=== PATIENT | female | born 1985 | race American Indian/Alaskan Native ===

== ENCOUNTER 2024-02-29 07:44 | Emergency (ER) | payer OTHER, SELFPAY ==
[2024-02-29 07:46] VITALS: BP 171/103; PULSE 100; RESP 18; TEMP 36.6; O2SAT 96; BMI 34.8
--- NOTE | 2024-02-29 08:04 | ED_ITS ---
HPI - Animal Bite General Chief Complaint: Animal Bite Stated Complaint: Bit by racoon Time Seen by Provider: 02/29/24 07:58 Source: patient Mode of arrival: ambulatory Limitations: no limitations History of Present Illness HPI narrative: Patient is a 38-year-old female who presents to the emergency department for evaluation. She reports 2 nights ago, she was bit and scratched to the bilateral forearms by a baby raccoon. Patient reports that the mother vitaly was killed by a coyote the other night, she was attempting to put the babies into a box for animal control to come and pick up operator when they had bit and scratched her arms. She was urged by her primary care provider to come to the emergency department to receive vaccination. Related Data Allergies Allergy/AdvReac Type Severity Reaction Status Date / Time Barbiturates Allergy Hypotension Verified 02/29/24 07:54 latex Allergy Hives Verified 02/29/24 07:54 morphine Allergy Hypotension Verified 02/29/24 07:54 Review of Systems Review of Systems: Yes all other systems are reviewed and are negative PMFSH Past Medical History Attestation statement: The following information was validated with the patient. Source: old records reviewed Social History Social History Do you have a plan to hurt others: No Plan Physical Exam ED Vital Signs: Vital Signs - 24 hr 02/29/24 07:46 Temperature 97.9 F Pulse Rate 100 Respiratory Rate 18 Blood Pressure 171/103 H Pulse Oximetry 96 Oxygen Delivery Method Room Air BMI result Body Mass Index 34.8 Appearance: Alert.?Oriented to person, place and time. No acute distress.?Normal affect. Eyes: Pupils equal, round and reactive to light.? ENT: Pharynx normal.?? Neck: Normal inspection.? Neck supple.?? CVS: Heart sounds normal. Normal heart rate and rhythm.? Pulses normal.?? Respiratory: No respiratory distress.? Lung sounds clear to auscultation bilaterally?? Skin: Skin warm and dry.? Normal skin color.? Extremities: No lower extremity edema.? Superficial abrasions of the bilateral forearms and over the radial aspect of the left wrist Neuro: Moves all extremities spontaneously. Sensation intact bilaterally. Ambulates with normal steady gait. Medical Decision Making Medical Decision Making MDM Narrative: Patient is a 38-year-old female who presents emergency department for evaluation after being bitten by a raccoon to the bilateral forearms 2 nights ago as per HPI. Overall appears well. Bites or without surrounding erythema warmth or active bleeding. She overall appears well, nontoxic, afebrile. 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 She is able to be calmed with redirection. Rabies immunoglobulin and vaccination series will be initiated in the emergency department in addition to updating Tdap. She verbalizes understanding for outpatient follow-up for the remainder of her va ccination series. Differential Diagnosis Differential Diagnoses: The differential diagnosis associated with the presentation includes (Rabies exposure, tetanus exposure, clinically does not have evidence of cellulitis, no active bleeding.) Prescription Management I considered prescription management with: Pain Medication (Acetaminophen/ibuprofen) Discharge Plan Discharge Clinical Impression: Animal bite Patient Disposition: Home, Self-Care Instructions: Rabies Vaccine (By injection), Rabies Immune Globulin (By injection), Rabies (ED) Additional Instructions: Rabies follow up with [place] [facility]: Upon discharge from the ED today, you will be contacted by the Infusion Center to schedule your follow up Rabies vaccines. You will need a total of 3 more injections. If for some reason you do not receive a call, please call the Infusion Center directly at [phone]. Follow up with your primary care provider after completion of the vaccine to have a titer drawn to ensure the vaccines effectiveness. Referrals: Sherine Cox NP [Primary Care Provider] - Print Language: Gabonese
[2024-02-29 09:23] VITALS: BP 136/92; PULSE 77; RESP 16; TEMP 37.1; O2SAT 97
[2024-02-29] MEDS: Rabies Immune Globulin/PF 900 UNIT/3 ML VIAL 1510 UNIT IM (09:28)
[2024-02-29] MEDS: Rabies Vaccine, Human Diploid (Imovax) 1 ML VIAL IM (09:28)
[2024-02-29] MEDS: Diphth,Pertus(ACell),Tet Adult 0.5 ML SYRINGE IM (09:31)
--- NOTE | 2024-02-29 10:18 | PC.NURSE ---
patient reports she was bit and scratched by a baby raccoon on 02/27/24 around 2300. patient states the animal was under her boat. patient medicated per DEC, feeling anxious but tolerated injections well. animal bite reporting form faxed to [facility]. f/u orders in. d/c instructions reviewed w/ patient, no questions at time of d/c
[2024-02-29 10:24] VITALS: BP 00/00; PULSE 72; RESP 16; TEMP -17.7; TEMP 0; O2SAT 97
== END 2024-02-29 10:24 | disposition home or self-care (01) ==
PROVIDERS: Emergency Provider Emergency Medicine; PCP Nurse Practitioner Family
DX: S51.832A Puncture wound without foreign body of left forearm, initial encounter (principal); S51.831A Puncture wound without foreign body of right forearm, initial encounter; W55.51XA Bitten by raccoon, initial encounter; Y93.9 Activity, unspecified; Y92.9 Unspecified place or not applicable; Y99.9 Unspecified external cause status; Z20.3 Contact with and (suspected) exposure to rabies; Z23 Encounter for immunization
CPT/HCPCS: 90375; 90471; 90472; 90675; 90715; 96372; 99282; 99284

== ENCOUNTER 2024-04-13 21:17 | Emergency (ER) | payer SELFPAY ==
--- NOTE | 2024-04-13 | ECG_ITS ---
Test Reason : CHEST PAIN Blood Pressure : / mmHG Vent. Rate : 104 BPM Atrial Rate : 104 BPM P-R Int : 136 ms QRS Dur : 094 ms QT Int : 342 ms P-R-T Axes : 062 016 035 degrees QTc Int : 449 ms Sinus tachycardia Otherwise normal ECG No previous ECGs available Referred By: Generic ED Physician Electronically Signed By:ZACH PARKER
[2024-04-13 21:22] VITALS: BP 135/86; PULSE 108; O2SAT 95
[2024-04-13 21:24] VITALS: BP 152/93; PULSE 107; RESP 12; TEMP 36.7; O2SAT 96; BMI 33.6
[2024-04-13 21:26] VITALS: BP 135/86; BP 152/93; PULSE 107; PULSE 108; RESP 12; TEMP 36.7; O2SAT 95; O2SAT 96; BMI 33.6
[2024-04-13 21:32] VITALS: RESP 18
--- NOTE | 2024-04-13 22:01 | ED_ITS ---
HPI - Chest Pain General Chief Complaint: Chest Pain Stated Complaint: cp Time Seen by Provider: 04/13/24 21:46 Source: patient Mode of arrival: EMS History of Present Illness ED Provider: Jannette Frias PA-C HPI narrative: 38-year-old female with history of anxiety presents with chest pain x3 days. Patient states she is having discomfort across the central chest, she describes it as ?as if someone kicked me in the chest?. Patient states her discomfort is exacerbated by ?stress?. When asked what this means, the patient begins to cry and explains she feels her recent rabies vaccines are causing her symptoms. Patient further reports that ?, I keep having episodes where I am shaking and I can not stop shaking?. Patient's last vaccine was administered on March 07, she never followed up for her last vaccine which should have been scheduled for March. Patient denies shortness of breath, cough cold symptoms, fever. Denies abdominal pain, nausea, vomiting, diarrhea. Related Data Allergies Allergy/AdvReac Type Severity Reaction Status Date / Time Barbiturates Allergy Hypotension Verified 04/13/24 21:32 latex Allergy Hives Verified 04/13/24 21:32 morphine Allergy Hypotension Verified 04/13/24 21:32 Penicillins Allergy Unknown Verified 04/13/24 21:32 hydromorphone AdvReac Hypotension Verified 04/13/24 21:32 Review of Systems 2 Review of Systems: Yes all other systems are reviewed and are negative Constitutional: Constitutional: Denies fever(s) Cardiovascular: Cardiovascular: Reports chest pain and Denies dyspnea Respiratory: Respiratory: Denies dyspnea Gastrointestinal: Gastrointestinal: Reports no additional gastrointestinal complaints Psychiatric: Psychiatric: Reports anxiety PMFSH Past Medical History Attestation statement: The following information was validated with the patient. Social History Social History Smoked in Last 30 Days: Yes Use of substances other than those prescribed or required for medical reasons: No Advance Directives: No Advance Directives Information Provided: No Do you have a plan to hurt others: No Plan Physical Exam 2 Vital Signs: Vital Signs: Last Vital Signs Temp 98.1 F 04/13/24 21:26 Pulse 107 H 04/13/24 21:26 Resp 18 04/13/24 21:32 BP 152/93 H 04/13/24 21:26 Pulse Ox 96 04/13/24 21:26 O2 Del Method Room Air 04/13/24 21:26 BMI result Body Mass Index 33.6 Const: Other: Alert well in appearance Orientation/consciousness: oriented to person, oriented to place and oriented to time Chest: Other: No deformity noted over chest wall, pain elicited with palpation on chest wall Resp: Other: Nonlabored respiration Cardio: Other: Normal peripheral perfusion Peripheral pulses: other (Radial pulses +2) Skin: Other: No rash Neuro: General: oriented to person, oriented to place and oriented to time Psych: Other: Hostile, belligerent, anxious, crying... Patient extremely emotionally labile, when she begins crying she is extremely apologetic for the way she is treated staff. Medical Decision Making Medical Decision Making MDM Narrative: 38-year-old female with history of anxiety, self report of aortic aneurysm presents with chest pain x3 days. Patient states she is having discomfort across the central chest, she describes it as ?as if someone kicked me in the chest?. Patient states her discomfort is exacerbated by ?stress?. When asked what this means, the patient begins to cry and explains she feels her recent rabies vaccines are causing her symptoms. Patient further reports that ?, I keep having episodes where I am shaking and I can not stop shaking?. Patient's last vaccine was administered on March 07, she never followed up for her last vaccine which should have been scheduled for March. Patient denies shortness of breath, cough cold symptoms, fever. Denies abdominal pain, nausea, vomiting, diarrhea. Problem: Anxiety, aortic aneurysm History: Per patient I have considered the following differential diagnoses: Dissection, ACS, panic attack, chest wall pain, PE Plan: ACS was considered, the patient does have some risk factors for coronary artery disease, screening labs, cardiac enzymes EKG obtained. To note the patient adamantly refuses a chest x-ray. I do believe her presentation is secondary to having a panic attack, her anxiety is poorly controlled. Patient states he used to see a therapist for years, and that she ?I have plenty of coping mechanisms of my to a box, I just can not use them?. She is perseverating over the fact that her recent rabies vaccines are causing her tremor and discomfort. I reviewed the list of adverse reactions with her, none of her complaints are part of this picture. I will be sending the patient with outpatient resources for counseling and therapy. She does have an element of chest wall pain, the pain is reproducible with palpation. However she has no mechanism of injury. Lastly of course I have considered dissection as she has a history of aortic aneurysm, I do not think she is dissecting. She has had symptoms for 3 days, she is neurovascularly intact, radial pulses are equal, and she has not overtly hypertensive. Again she declines a chest x-ray. Also thought about PE, she is tachycardic. However she has not hypoxic, the tachycardia is transient, she has no objective signs symptoms for DVT on exam, she also declined shortness of breath, and her pain is not pleuritic. Deferring a dimer as I do not feel it is clinically warranted. I have tried numerous times to address the fact that it would be nice to have a chest x-ray, however she adamantly refuses. She just wants to leave. I have independently reviewed the following tests: Labs: No leukocytosis, no anemia, no electrolyte abnormality, troponin negative, EKG: Have to be so hard sinus tachycardia, rate of 104, no ischemic changes no ectopy, QT 440 Differential Diagnosis Differential Diagnoses: The differential diagnosis associated with the presentation includes Dissection, ACS, panic attack, chest wall pain Lab Data 04/13/24 22:15 04/13/24 22:15 Labs: Lab Results 04/13/24 Range/Units 22:15 WBC 6.4 (4.8-10.8) X10*3/uL RBC 4.42 (4.20-5.50) X10*6/uL Hgb 15.1 (12.0-16.0) g/dl Hct 42.7 (37.0-47.0) % MCV 96.6 (80.0-98.0) fL MCH 34.2 H (27.0-33.0) pg MCHC 35.4 H (31.0-35.0) g/dl RDW 13.3 (11.0-16.0) % Plt Count 176 (160-400) X10*3/uL MPV 8.5 L (9.4-12.3) fL Immature Gran % (Auto) 0.3 (0.0-0.4) % Neut % (Auto) 45.0 (45-73) % Lymph % (Auto) 45.6 H (20-40) % Bowie % (Auto) 6.2 (2-11) % Eos % (Auto) 2.3 (0-4) % Baso % (Auto) 0.6 (0-2) % Lymph # (Auto) 2.9 (1.2-4.9) X10*3/uL Bowie # (Auto) 0.4 (0.1-1.2) X10*3/uL Eos # (Auto) 0.2 (0.0-0.4) X10*3/uL Baso # (Auto) 0.0 (0.0-0.2) X10*3/uL Abs Immat Gran (auto) 0.02 (0.00-0.03) X10*3/uL Absolute Neuts (auto) 2.9 (2.0-8.3) x10*3/uL Absolute Nucleated RBC 0.000 (0.0-0.012) X10*3/uL Nucleated RBC % (auto) 0.0 (0.0-0.2) /100WBC Sodium 142 (135-145) mmol/L Potassium 3.4 (3.3-5.1) mmol/L Chloride 104 (96-108) mmol/L Carbon Dioxide 24 (22-29) mmol/L Anion Gap 17 (12-20) BUN 6 L (9-16) mg/dL Creatinine 0.73 (0.5-1.4) mg/dL Estim Creat Clear Calc 90.7 Estimated GFR > 60 Random Glucose 104 (60-115) mg/dL Calcium 9.7 (8.4-10.2) mg/dL Total Bilirubin 0.4 (0.0-1.0) mg/dL AST 296 H (5-31) U/L ALT 42 H (0-31) U/L Alkaline Phosphatase 106 (39-117) U/L Troponin I High Sens < 2.7 (<3.5-17.0) ng/L Total Protein 8.7 H (6.5-8.0) g/dL Albumin 4.4 (3.5-5.0) g/dL Discharge Plan Discharge Clinical Impression: Anxiety about health Patient Disposition: Home, Self-Care Instructions: Panic Attack (ED) Additional Instructions: All of your screening labs including a cardiac enzymes were negative. There were no concerning changes on her EKG, you declined a chest x-ray. Your discomfort is not related to your heart. I do believe your anxiety is poorly controlled, you are being provided with a list of outpatient resources so that you can seek counseling. Follow up with your primary care provider as needed. Print Language: Estonian
[2024-04-13 22:19] LABS: MANUAL DIFF FLAG NO
[2024-04-13 22:22] LABS: Basophils Percent Auto 0.6 % (0-2); Eosinophils Absolute Auto 0.2 X10*3/uL (0.0-0.4); Eosinophils Percent Auto 2.3 % (0-4); Hematocrit 42.7 % (37.0-47.0); Hemoglobin 15.1 g/dl (12.0-16.0); Imm Gran Abs Auto 0.02 X10*3/uL (0.00-0.03); Imm Gran Pct Auto 0.3 % (0.0-0.4); Lymphocytes Absolute Auto 2.9 X10*3/uL (1.2-4.9); Lymphocytes Percent Auto 45.6 % (20-40); Mean Corpuscular HGB Conc 35.4 g/dl (31.0-35.0); Mean Corpuscular Hemoglobin 34.2 pg (27.0-33.0); Mean Corpuscular Volume 96.6 fL (80.0-98.0); Mean Platelet Volume 8.5 fL (9.4-12.3); Monocytes Absolute Auto 0.4 X10*3/uL (0.1-1.2); Monocytes Percent Auto 6.2 % (2-11); Neutrophils Absolute Auto 2.9 x10*3/uL (2.0-8.3); Platelet Count 176 X10*3/uL (160-400); Red Blood Count 4.42 X10*6/uL (4.20-5.50); Red Cell Distribution Width 13.3 % (11.0-16.0); White Blood Count 6.4 X10*3/uL (4.8-10.8)
[2024-04-13 22:43] LABS: Alanine Aminotransferase 42 U/L (0-31); Albumin Level 4.4 g/dL (3.5-5.0); Alkaline Phosphatase 106 U/L (39-117); Anion Gap 17 (12-20); Aspartate Amino Transferase 296 U/L (5-31); Bilirubin Total 0.4 mg/dL (0.0-1.0); Blood Urea Nitrogen 6 mg/dL (9-16); Calcium 9.7 mg/dL (8.4-10.2); Carbon Dioxide 24 mmol/L (22-29); Chloride 104 mmol/L (96-108); Creatinine Clr Calc Pharmacy 90.7; Estimated Glomerular Filt Rate > 60; Glucose Random 104 mg/dL (60-115); Potassium 3.4 mmol/L (3.3-5.1); Sodium 142 mmol/L (135-145); Total Protein 8.7 g/dL (6.5-8.0)
--- NOTE | 2024-04-13 22:46 | PC.NURSE ---
pt upset at nurses station asking for her cell phone. pt getting upset while on the phone stating no one has seen her. This rn witness pt getting upset, this rn talked with pt with palliative senior np at bedside and reviewed all the test, labs, vitals and xray that the palliative senior np is going thur at this time. results till pending.
--- NOTE | 2024-04-13 22:49 | PC.NURSE ---
Before patient even seen by provider, was asking to go home. Patient told she should wait until a provider sees her and her lab work to come back before leaving.
[2024-04-13 22:53] LABS: Troponin-I High Sensitivity < 2.7 ng/L (<3.5-17.0)
[2024-04-13 23:31] VITALS: BP 148/87; PULSE 8; RESP 18; TEMP 36.8
== END 2024-04-13 23:32 | disposition home or self-care (01) ==
PROVIDERS: Emergency Provider Emergency Medicine
DX: R07.89 Other chest pain (principal); F41.1 Generalized anxiety disorder; F43.0 Acute stress reaction; Z79.899 Other long term (current) drug therapy
CPT/HCPCS: 36415; 80053; 84484; 85025; 93005; 99283; 99285

== ENCOUNTER → 2024-04-13 21:24 | Outpatient (BNV) | payer SELFPAY | PROVIDERS: Emergency Provider Emergency Medicine; Visit Provider Internal Medicine | DX: R00.0 Tachycardia, unspecified (principal); R07.9 Chest pain, unspecified | CPT/HCPCS: 93010 ==

== ENCOUNTER 2025-09-25 11:24 | Inpatient (IN) | payer MEDICAID, SELFPAY ==
--- NOTE | ~2025-09-25 | XR_ITS ---
EXAMINATION: XR CHEST CLINICAL INFORMATION: Cough COMPARISON: None available. TECHNIQUE: AP portable view of the chest was obtained. FINDINGS: Projection is apical lordotic. The cardiac, hilar, and mediastinal contours are normal. The lungs are clear bilaterally. No pneumothorax or effusion. No focal osseous or soft tissue abnormality. XR/XR chest 1V IMPRESSION: Normal apical lordotic chest radiograph. Electronically signed by: Nadir Schwartz MD 09/28/2025 11:29 AM [facility]
--- NOTE | ~2025-09-25 | CT_ITS ---
EXAMINATION: CT ABDOMEN AND PELVIS WITH CONTRAST CLINICAL INFORMATION: abdominal pain, loose stools, abnormal electrolyte COMPARISON: None available. TECHNIQUE: Multidetector volumetric images were obtained from the superior aspect of the liver through the pubic symphysis following administration 85 mL of Omnipaque 350 intravenous contrast. Sagittal and coronal reformatted images were obtained on the technologist's workstation. Oral contrast: No This CT examination was performed using dose optimization techniques as appropriate, variously including the following: *Automated exposure control *Adjustment of mA and/or kV according to patient size (this includes techniques or standardized protocols for targeted exams where dose is matched to indication/reason for exam; i.e. extremities or head) *Use of iterative reconstruction technique FINDINGS: LUNG BASES: The visualized lung bases are unremarkable. LIVER, GALLBLADDER, AND BILIARY TREE: Fatty changes throughout the liver with geographic areas of fatty sparing. The gallbladder is unremarkable with no evidence of radiopaque gallstones, gallbladder wall thickening, or obvious pericholecystic inflammatory changes. PANCREAS: Unremarkable. SPLEEN: Unremarkable. ADRENAL GLANDS: There is a punctate calcifications in the left adrenal gland. The adrenal glands are otherwise unremarkable. KIDNEYS AND URETERS: There is a 2 mm stone in the upper pole left kidney and possibly 2 other smaller punctate stones in the mid to lower left kidney. There is no hydronephrosis. BLADDER: Unremarkable. GASTROINTESTINAL TRACT: The small and large bowel are unremarkable. There are surgical clips consistent with prior appendectomy. ABDOMINAL WALL: No significant hernia is appreciated. LYMPH NODES: Normal. VASCULAR: Unremarkable. PELVIC VISCERA: Uterus and ovaries are unremarkable. OSSEOUS STRUCTURES: L5-S1 demonstrates grade 2 anterolisthesis with vacuum phenomenon and moderate disc space narrowing and chronic bilateral pars interarticularis defects. CT/CT abdomen pelvis w IV con IMPRESSION: No abnormality to explain the patient's abdominal pain Hepatic steatosis with areas of geographic sparing. Nephrolithiasis, left kidney. There are likely three 1-2 mm stones. 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 Fleischner guidelines were followed. Electronically signed by: Ezio Centeno MD 09/25/2025 05:05 PM [facility]
[2025-09-25 12:03] VITALS: BP 129/81; PULSE 100; RESP 18; TEMP 36.8; O2SAT 100; BMI 33.8
--- NOTE | 2025-09-25 12:05 | ED_ITS ---
HPI - General Adult General Chief complaint: GI Bleed Stated complaint: Gastro Issues No Bowel Movement Time Seen by Provider: 09/25/25 13:37 Source: patient, family and old records reviewed Mode of arrival: ambulatory Limitations: no limitations History of Present Illness ED Provider: ALMITA DAVIDSON narrative: 40 yo with no real past medical history but she also does not go to the doctors. She admits to heavy alcohol use for years she states she was having about 10 nips of vodka a day. She has been trying to taper down and states she did drink this morning but it was only 3 sips. She states she has never had a withdrawal seizure but just she does shake at home. She states over the last several months starting in February she has had recurrent nausea, vomiting, blood in her urine I asked her about the blood in her stool and she states no but she did throw up what look like blood this morning. She states she takes no blood thinners no Motrin or NSAIDs. She states she has not passed gas or had a bowel movement in 1 week. She has prior abdominal surgeries including tubal ligation appendectomy. She was told to come here as she has been trying to do this as an outpatient and they noted her potassium was low so that is why they sent her to the ED. She is supposed to see GI as well who recommended she come here for emergent imaging. I asked her about weight loss and she says not that she is aware of. She has no fevers. MD complaint: Abdominal pain, nausea vomiting, constipation, episode of possible bloody Onset (ago): month(s) Location: abdomen Radiation: non-radiation Severity: severe Quality: aching Pain Consistency: constant Relieving factors: none Exacerbating factors: none Associated symptoms: loss of appetite, malaise, nausea/vomiting and other ( constipation) Treatments prior to arrival: none Related Data Home Medications ?Medication ?Instructions ?Recorded ?Confirmed albuterol sulfate 90 mcg/actuation 2 puff inhalation Q 4H PRN 09/25/25 09/25/25 aerosol inhaler Shortness Of Breath Or Wheez ing ondansetron 4 mg disintegrating 4 mg PO DAILY PRN Naus ea And 09/25/25 09/25/25 tablet Vomiting potassium chloride 20 mEq 20 meq PO BID 09/25/2509/25 tablet,extended release Allergies Allergy/AdvReac Type Severity Reaction Status Date / Time Barbiturates Allergy Hypotension Verified 09/25/25 12:06 latex Allergy Hives Verified 09/25/25 12:06 morphine Allergy Hypotension Verified 09/25/25 12:06 Penicillins Allergy Unknown Verified 09/25/25 12:06 hydromorphone AdvReac Hypotension Verified 09/25/25 12:06 Review of Systems 2 Review of Systems: Constitutional : No Weight loss, No Fever, No Chills ENT/Mouth : No sore throat, No Rhinorrhea Eyes: No Swelling, No Redness Cardiovascular : No Chest Pain, No SOB, NoEdema Respiratory : No Cough, No Sputum, No Wheezing Gastrointestinal : Positive Nausea, Positive Vomiting, no Diarrhea, positive abdominal Pain, No Hematochezia, No Melena, pos constipation Genitourinary : No Dysuria, No Urinary Frequency, No Hematuria, No Urgency Musculoskeletal : No joint pain, No Myalgias, No Joint Swelling Skin : No Skin Lesions, No rash Neuro : No Weakness, No Numbness, No Dizziness, No Headache All other systems reviewed and are negative. [facility] Past Medical History Attestation statement: The following information was validated with the patient. Source: old records reviewed Medical History Alcoholic Social History Social History Household Members: Children Housing: House Do you presently have visiting nurse or other home services: No Alcohol intake: current Alcohol intake frequency: 3 or more drinks per day Alcohol type: hard liquor Patient Tobacco Use Status: Current everyday Tobacco user Tobacco use type: Cigarette service: No Physical Exam ED Vital Signs: Vital Signs - 24 hr 09/25/25 12:03 09/25/25 14:18 09/25/25 16:51 Temperature 98.3 F 97.9 F 98.1 F Pulse Rate 100 109 H 95 Respiratory Rate 18 9 L 97 H Blood Pressure 129/81 142/94 H 125/81 Pulse Oximetry 100 97 97 Oxygen Delivery Method Room Air Room Air Room Air BMI result Body Mass Index 33.8 Appearance: Alert. Oriented X3. mild acute distress. she is older than stated age she has noted tremors on exam as well as tongue fasciculations. Eyes: Pupils equal, round and reactive to light. ENT: Pharynx dry mucous membranes. Patient almost seems to have a herrera face type presentation Neck: Normal inspection. Neck supple. CVS: tachycardic heart rate and rhythm. Pulses normal. Respiratory: No respiratory distress. Breath sounds normal. Abdomen: Soft with mild distention and tenderness to palpation along the upper abdominal area she has no rebound Skin: Skin warm and dry. pale skin color. Normal skin turgor. Extremities: No lower extremity edema. Neuro: Oriented X 3. No motor deficit. No sensory deficit. CN2-12 intact Course Course Course Narrative: Rapid medical examination performed in triage by Apoorva Srivastava PA-C: Patient is a 40 year old assigned female at presenting to the emergency department with abdominal pain and blood in her stools. Detailed physical exam and review of systems are deferred to the forest patrolman. Labs ordered. Patient placed back in the waiting room pending room availability and results. Reevaluation(s) Reevaluation #1: 4:20 PM 09/25/2025 (ALMITA JOHN): signed out to Dr. Hendrickson pending CT scan and anticipate admission. After phenobarb was administered I noted that she had a prior history of hypotension she currently is not hypotensive so she will need to be monitored Medications Administered Generic Name Dose Route Start Last Admin Trade Name Freq PRN Reason Stop Dose Admin Acetaminophen 650 mg 09/25/25 17:44 09/28/25 05:46 Acetaminophen 325 Mg Tablet PO 650 mg Q6H PRN Administration Pain, Mild 1-3,fever,headache Folic Acid 1 mg 09/26/25 09:00 09/28/25 09:10 Folic Acid 1 Mg Tablet PO 1 mg DAILY LIBBY Administration Guaifenesin 10 ml 09/27/25 01:19 09/28/25 09:09 Guaifenesin 200 Mg/10 Ml 10 Ml Liquid PO 10 ml Q4H PRN Administration Cough Magnesium Hydroxide 30 ml 09/25/25 17:44 09/27/25 10:47 Milk Of Magnesia 30 Ml Oral.Susp PO 30 ml DAILY PRN Administration Constipation Melatonin 6 mg 09/25/25 17:44 09/27/25 23:11 Melatonin 3 Mg Tablet PO 6 mg BEDTIME PRN Administration Insomnia Multivitamins/Vitamin C 1 tab 09/26/25 09:00 09/28/25 09:14 Multivitamin Tablet PO 1 tab DAILY LIBBY Administration Ondansetron HCl 4 mg 09/25/25 17:44 09/28/25 09:06 Ondansetron Hcl 4 Mg/2 Ml Vial IVPUSH 4 mg Q8H PRN Administration Nausea and Vomiting Pantoprazole Sodium 40 mg 09/26/25 06:30 09/28/25 05:36 Pantoprazole Sodium 40 Mg/10 Ml Vial IVPUSH 40 mg BID@0630,1630 LIBBY Administration Phenobarbital 15 mg 09/28/25 09:00 09/28/25 09:10 Phenobarbital 15 Mg Tablet PO 09/29/25 21:01 15 mg BID LIBBY Administration Sodium Chloride 3 ml 09/26/25 00:00 09/28/25 09:15 0.9 % Sodium Chloride Flush 3 Ml Syringe IVFLUSH 3 ml QSHIFT LIBBY Administration Thiamine HCl 100 mg 09/26/25 09:00 09/28/25 09:10 Thiamine Hcl 100 Mg Tablet PO 100 mg DAILY LIBBY Administration Discontinued Medications Generic Name Dose Route Start Last Admin Trade Name Freq PRN Reason Stop Dose Admin Bisacodyl 10 mg 09/27/25 13:00 09/27/25 12:28 Bisacodyl 5 Mg Tablet. PO 09/27/25 13:01 10 mg ONCE ONE Administration Potassium Chloride 10 meq in 100 mls @ 100 mls/hr 09/25/25 14:00 09/26/25 00:43 Potassium Chloride/H20 IV 09/25/25 17:59 Infused Q1H LIBBY Infusion Lactated Ringer's 1,000 mls @ 80 mls/hr 09/25/25 13:45 09/27/25 20:19 Lr IVCONT Infused .[id number] LIBBY Infusion Magnesium Sulfate 2 gm in 50 mls @ 25 mls/hr 09/25/25 14:01 09/25/25 17:00 Magnesium Sulfate/H2o IV 09/25/25 16:00 Infused ONCE ONE Infusion Thiamine HCl 200 mg/ Sodium 102 mls @ 204 mls/hr 09/25/25 14:01 09/25/25 16:00 Chloride IV 09/25/25 14:30 Infused ONCE ONE Infusion Lactated Ringer's 1,000 mls @ 999 mls/hr 09/25/25 14:13 09/25/25 17:20 Lr IV 09/25/25 15:13 Infused .Q1H1M ONE Infusion Lactated Ringer's 500 mls @ 500 mls/hr 09/27/25 01:26 09/27/25 08:23 Lr IVCONT 09/27/25 02:25 Infused .Q1H ONE Infusion Iohexol 100 ml 09/25/25 16:41 09/25/25 16:41 Iohexol 350 Mg/Ml 100 Ml Infus..Btl IV 09/25/25 16:42 85 ml ONCE ONE Administration Pantoprazole Sodium 40 mg 09/25/25 14:02 09/25/25 14:41 Pantoprazole Sodium 40 Mg/10 Ml Vial IVPUSH 09/25/25 14:03 40 mg ONCE ONE Administration Phenobarbital 30 mg 09/26/25 09:00 09/27/25 19:57 Phenobarbital 30 Mg Tablet PO 09/27/25 21:01 30 mg BID LIBBY Administration Phenobarbital Sodium 170 mg 09/25/25 14:15 09/25/25 15:05 Phenobarbital Sodium 130 Mg/Ml Im Once IM 09/25/25 14:16 170 mg ONCE ONE Administration Phenobarbital Sodium 127 mg 09/25/25 18:00 09/25/25 21:42 Phenobarbital Sodium 130 Mg/Ml Vial Im Q3hx2 IM 09/25/25 21:01 127 mg Q3H LIBBY Administration Potassium Chloride 40 meq 09/25/25 14:34 09/25/25 15:10 Potassium Chloride Packet 20 Meq Packet PO 09/25/25 14:35 40 meq ONCE ONE Administration Potassium Chloride 40 meq 09/25/25 19:19 09/25/25 21:37 Potassium Chloride Packet 20 Meq Packet PO 09/25/25 19:20 40 meq ONCE STA Administration Thiamine HCl 100 mg 09/25/25 18:00 09/26/25 09:22 Thiamine Hcl 100 Mg Tablet PO Not Given DAILY LIBBY Medical Decision Making Medical Decision Making MDM Narrative: 40-year-old female with past medical history of alcoholism she has never had an alcohol withdrawal seizure on arrival today she has several months of abdominal pain, nausea, vomiting now for the past week has not had a bowel movement or passed gas. She has had prior abdominal surgeries. She also reports she thinks she vomited some blood this morning she has no risk factors such as NSAID or blood thinner use. She has not been to the doctors before so it is very hard to say if she has true medical history. She was referred here for emergent CT scan given her symptoms as well as repletion of her electrolytes. On arrival she is clearly and alcohol withdrawal. At this time given her QTC of 502, hypokalemia, alcohol use and signs of active withdrawal I am going to start her on IV potassium, IV thiamine, IV magnesium, IV fluids, I am phenobarb. She will need CT scan as well to look for any issues such as pancreatitis, obstruction, constipation. I anticipate she will need to be admitted given her presentation and concern for alcohol withdrawal. Patient's case discussed with hospitalist team. Will admit for further detox evaluation. In stable condition. Differential Diagnosis Differential Diagnoses: The differential diagnosis associated with the presentation includes Pancreatitis, electrolyte abnormality, gastritis, dehydration, alcohol withdrawal Admission/Observation Consideration of admission/observation: Escalation of care including admission/observation considered anticipate admission for alcohol withdrawal as well as electrolyte abnormality Lab Data MDM Lab Attestation statement: I reviewed the patient's lab results. 09/28/25 06:27 09/28/25 06:27 Labs: Lab Results 09/25/25 09/25/25 Range/Units 12:15 15:20 WBC 11.7 H (4.8-10.8) X10*3/uL RBC 3.62 L (4.20-5.50) X10*6/uL Hgb 12.7 (12.0-16.0) g/dl Hct 38.6 (37.0-47.0) % MCV 106.6 H (80.0-98.0) fL MCH 35.1 H (27.0-33.0) pg MCHC 32.9 (31.0-35.0) g/dl RDW 14.9 (11.0-16.0) % Plt Count 217 (160-400) X10*3/uL MPV 9.2 L (9.4-12.3) fL Immature Gran % (Auto) 0.3 (0.0-0.4) % Neut % (Auto) 72.6 (45-73) % Lymph % (Auto) 21.7 (20-40) % [place] % (Auto) 5.0 (2-11) % Eos % (Auto) 0.1 (0-4) % Baso % (Auto) 0.3 (0-2) % Lymph # (Auto) 2.5 (1.2-4.9) X10*3/uL [place] # (Auto) 0.6 (0.1-1.2) X10*3/uL Eos # (Auto) 0.0 (0.0-0.4) X10*3/uL Baso # (Auto) 0.0 (0.0-0.2) X10*3/uL Abs Immat Gran (auto) 0.04 H (0.00-0.03) X10*3/uL Absolute Neuts (auto) 8.5 H (2.0-8.3) x10*3/uL Absolute Nucleated RBC 0.000 (0.0-0.012) X10*3/uL Nucleated RBC % (auto) 0.0 (0.0-0.2) /100WBC Sodium 135 (135-145) mmol/L Potassium 2.4 L* D (3.3-5.1) mmol/L Chloride 89 L (96-108) mmol/L Carbon Dioxide 26 (22-29) mmol/L Anion Gap 22 H (12-20) BUN 4 L (9-16) mg/dL Creatinine 0.61 (0.5-1.4) mg/dL Estim Creat Clear Calc 102.1 Estimated GFR > 60 Random Glucose 101 (60-115) mg/dL Calcium 9.6 (8.4-10.2) mg/dL Magnesium 1.9 (1.6-2.6) mg/dL Total Bilirubin 1.3 H (0.0-1.0) mg/dL AST 159 H (5-31) U/L ALT 32 H (0-31) U/L Alkaline Phosphatase 136 H (39-117) U/L Total Protein 8.5 H (6.5-8.0) g/dL Albumin 4.3 (3.5-5.0) g/dL Lipase 42 (8-78) U/L Urine Color Yellow Urine Appearance Clear Urine pH 7.0 (5.0-9.0) Ur Specific [place] <= 1.005 (1.005-1.025) Urine Protein Negative (Neg-Trace) mg/dL Urine Glucose (UA) Negative (Negative) mg/dL Urine Ketones Negative (Negative) mg/dL Urine Blood Negative (Negative) Urine Nitrite Negative (Negative) Ur Leukocyte Esterase Trace H (Negative) Urine RBC 0-2 (0-2) /HPF Urine WBC 0-5 (0-5) /HPF Ur Squamous Epith Cells 3-5 (0-2) /HPF Urine Bacteria Trace (None Seen) Hyaline Casts 0-2 (0-2) /LPF Urine Test NEGATIVE (NEGATIVE) Ethyl Alcohol 117 mg/dL Independent Interpretation I performed an independent interpretation of an: EKG and CT Scan Interpretation: Rate: 105 Rhythm: sinus tach [place]: normal Normal P waves. Normal [place]. Normal QRS complex. ST T wave : no ST-elevation but she has diffuse nonspecific STT wave changes in the inferior and lateral leads qTC: 502 prior studies: suspect that you changes are due to her electrolyte derangement The study has been interpreted contemporaneously by me. . Radiology Impression Discussion of test interpretation with radiology: I have reviewed the radiologist's reading. Discharge Plan Discharge Clinical Impression: Hypokalemia Gastritis Qualifiers: Gastritis type: alcoholic Chronicity: acute Gastritis bleeding: without bleeding Qualified Code(s): K29.20 - Alcoholic gastritis without bleeding Alcohol withdrawal Qualifiers: Complication of substance-induced condition: with unspecified complication Q ualified Code(s): F10.939 - Alcohol use, unspecified with withdrawal, unspecified Patient Disposition: Admitted As Inpatient Interventions: Admission Worksheet (ED) Last Done: 09/26/25 09:32 Discharge Date/Time: 09/26/25 10:08
[2025-09-25 12:20] LABS: MANUAL DIFF FLAG NO
[2025-09-25 12:27] LABS: Hematocrit 38.6 % (37.0-47.0); Hemoglobin 12.7 g/dl (12.0-16.0); Imm Gran Abs Auto 0.04 X10*3/uL (0.00-0.03); Imm Gran Pct Auto 0.3 % (0.0-0.4); Lymphocytes Absolute Auto 2.5 X10*3/uL (1.2-4.9); Mean Corpuscular HGB Conc 32.9 g/dl (31.0-35.0); Mean Corpuscular Hemoglobin 35.1 pg (27.0-33.0); Mean Corpuscular Volume 106.6 fL (80.0-98.0); NRBC Abs Auto 0.000 X10*3/uL (0.0-0.012); NRBC Pct Auto 0.0 /100WBC (0.0-0.2); Platelet Count 217 X10*3/uL (160-400); Red Blood Count 3.62 X10*6/uL (4.20-5.50); White Blood Count 11.7 X10*3/uL (4.8-10.8)
[2025-09-25 12:40] LABS: Alanine Aminotransferase 32 U/L (0-31); Albumin Level 4.3 g/dL (3.5-5.0); Alkaline Phosphatase 136 U/L (39-117); Anion Gap 22 (12-20); Aspartate Amino Transferase 159 U/L (5-31); Blood Urea Nitrogen 4 mg/dL (9-16); Calcium 9.6 mg/dL (8.4-10.2); Carbon Dioxide 26 mmol/L (22-29); Chloride 89 mmol/L (96-108); Creatinine Clr Calc Pharmacy 102.1; Estimated Glomerular Filt Rate > 60; Magnesium 1.9 mg/dL (1.6-2.6); Potassium 2.4 mmol/L (3.3-5.1); Sodium 135 mmol/L (135-145); Total Protein 8.5 g/dL (6.5-8.0)
--- NOTE | 2025-09-25 13:20 | ECG_ITS ---
Test Reason : qrs Blood Pressure : */* mmHG Vent. Rate : 105 BPM Atrial Rate : 105 BPM P-R Int : 120 ms QRS Dur : 84 ms QT Int : 380 ms P-R-T Axes : 71 16 12 degrees QTcB Int : 502 ms Sinus tachycardia Possible Left atrial enlargement T wave abnormality, consider inferior ischemia Abnormal ECG When compared with ECG of 13-Apr-2024 21:24, T wave inversion now evident in Inferior leads Nonspecific T wave abnormality now evident in Lateral leads QT has lengthened Referred By: Apoorva Srivastava Electronically Signed By: RADHA CARROLL MD
[2025-09-25 14:18] VITALS: BP 142/94; PULSE 109; RESP 9; TEMP 36.6; O2SAT 97
[2025-09-25 14:20] LABS: Lipase 42 U/L (8-78)
[2025-09-25] MEDS: Lactated Ringers 1,000 ML 999 ML IV (14:24)
[2025-09-25] MEDS: Potassium Chloride/H20 10 MEQ/100 ML PIGGYBACK 100 MEQ IV ×4 (14:29→21:40)
[2025-09-25] MEDS: Thiamine HCL 200 MG in 0.9 % Sodium Chloride 100 ML 204 MG IV (14:41)
[2025-09-25] MEDS: Magnesium Sulfate/H2O 2 GM/50 ML PIGGYBACK IV (14:41)
[2025-09-25] MEDS: PHENobarbitaL sodium 130 MG/ML IM ONCE 170 MG IM (15:05)
[2025-09-25] MEDS: Potassium Chloride Packet 20 MEQ PACKET 40 MEQ PO ×2 (15:10→21:37)
[2025-09-25 15:43] LABS: Appearance Urine Clear; Glucose Urine UA Negative (Negative); PH 7.0 (5.0-9.0); Specific Gravity - Urine <= 1.005 (1.005-1.025); UMIC TRIGGER UACC YES
[2025-09-25 16:27] LABS: UPreg QC Valid YES
[2025-09-25] MEDS: iohexoL 350 MG/ML 100 ML INFUS..BTL IV (16:41)
[2025-09-25 16:51] VITALS: BP 125/81; PULSE 95; RESP 97; TEMP 36.7; O2SAT 97
--- NOTE | 2025-09-25 18:30 | P.HPHOSP_ITS ---
History of Present Illness Date of Service: 09/25/25 Chief Complaint: n/v 40yo M with no diagnosed chronic medical problems but who drinks approximately 10 nips of vodka has had persistent nausea, vomiting, and epigastric pain since February. She has been unable to keep anything solid down for the past 1 week and thinks she threw up a little bit of blood this AM. Doesn't take aspirin or ibuprofen. No BM x 1 wk. She was noted to be intoxicated with BAL 117 and severely hypokalemic with K 2.4. She endorses generalized muscle weakness. She was given IV pantoprazole, 40 mEq of IV KCl, and 40 mEq of PO KCl. She was started on phenobarbital taper. No history of EtOH withdrawal seizures. Review of Systems 2 Review of Systems: Yes all other systems are reviewed and are negative [facility] Medical History Alcoholic Social History Alcohol intake: current Alcohol intake frequency: 3 or more drinks per day Alcohol type: hard liquor Patient Tobacco Use Status: Tobacco use Unknown Smoked in Last 30 Days: Yes Advance Directives: No Advance Directives Information Provided: Yes Patient : No Meds Allergies Allergy/AdvReac Type Severity Reaction Status Date / Time Barbiturates Allergy Hypotension Verified 09/25/25 12:06 latex Allergy Hives Verified 09/25/25 12:06 morphine Allergy Hypotension Verified 09/25/25 12:06 Penicillins Allergy Unknown Verified 09/25/25 12:06 hydromorphone AdvReac Hypotension Verified 09/25/25 12:06 Active Medications: Current Medications Acetaminophen (Acetaminophen 325 Mg Tablet) 650 mg PO Q6H PRN PRN Reason: Pain, Mild 1-3,fever,headache Calcium Carbonate (Calcium Carbonate 750 Mg Tab.Chew) 750 mg PO Q4H PRN PRN Reason: Heartburn Enoxaparin Sodium (Enoxaparin Sodium 40 Mg/0.4 Ml Syringe) 40 mg SUBCUT Q24H LIBBY Folic Acid (Folic Acid 1 Mg Tablet) 1 mg PO DAILY LIBBY Lactated Ringer's (Lr) 1,000 mls @ 80 mls/hr IVCONT .[id number] LIBBY Magnesium Hydroxide (Milk Of Magnesia 30 Ml Oral.Susp) 30 ml PO DAILY PRN PRN Reason: Constipation Melatonin (Melatonin 3 Mg Tablet) 6 mg PO BEDTIME PRN PRN Reason: Insomnia Multivitamins/Vitamin C (Multivitamin Tablet) 1 tab PO DAILY [facility] Ondansetron HCl (Ondansetron Hcl 4 Mg/2 Ml Vial) 4 mg IVPUSH Q8H PRN PRN Reason: Nausea and Vomiting Pantoprazole Sodium (Pantoprazole Sodium 40 Mg/10 Ml Vial) 40 mg IVPUSH BID@0630,1630 [facility] Pharmacy Consult (Consult Rx Etoh Phenob Im/Po) 1 each MISCELLANE ONCE PRN; Protocol PRN Reason: Consult order Phenobarbital (Phenobarbital 30 Mg Tablet) 30 mg PO BID [facility] Stop: 09/27/25 21:01 Phenobarbital (Phenobarbital 15 Mg Tablet) 15 mg PO BID [facility] Stop: 09/29/25 21:01 Phenobarbital (Phenobarbital 15 Mg Tablet) 15 mg PO DAILY [facility] Stop: 10/01/25 09:01 Phenobarbital Sodium (Phenobarbital Sodium 130 Mg/Ml Vial Im Q3hx2) 127 mg IM Q3H [facility] Stop: 09/25/25 21:01 Sodium Chloride (0.9 % Sodium Chloride Flush 3 Ml Syringe) 3 ml IVFLUSH QSHIFT [facility] Thiamine HCl (Thiamine Hcl 100 Mg Tablet) 100 mg PO DAILY [facility] Home Medications ?Medication ?Instructions ?Recorded ?Confirmed ?Last Taken ?Type folic acid 1 mg tablet 1 mg PO DAILY 09/25/25 Unkn own History naltrexone 50 mg tablet 50 mg PO DAILY 09/25/25 Unk nown History ondansetron 4 mg disintegrating 4 mg PO DAILY PRN Naus ea And 09/25/25 Unknown History tablet Vomiting potassium chloride 20 mEq 20 meq PO BID 09/25/25 Unkn own History tablet,extended release Physical Exam 2 Vital Signs and Narrative: Vital Signs: Last Vital Signs Temp 98.1 F 09/25/25 16:51 Pulse 95 09/25/25 16:51 Resp 97 H 09/25/25 16:51 BP 125/81 09/25/25 16:51 Pulse Ox 97 09/25/25 16:51 O2 Del Method Room Air 09/25/25 16:51 BMI result Body Mass Index 33.8 Gen: in no acute distress HEENT: sclera anicteric, moist mucus membranes Neck: supple Lungs: clear to auscultation bilaterally Heart: regular, tachycardic, no murmurs Abd: soft, epigastric tenderness without rebound, non-distended Ext: no edema Skin: warm/well-perfused Neuro: alert and oriented x3, no focal findings Psych: appropriate affect Results Labs 09/25/25 12:15 09/25/25 12:15 Labs: Laboratory Results - last 24 hr 09/25/25 09/25/25 12:15 15:20 MCV 106.6 H MCH 35.1 H MCHC 32.9 RDW 14.9 Plt Count 217 MPV 9.2 L Immature Gran % (Auto) 0.3 Neut % (Auto) 72.6 Lymph % (Auto) 21.7 [place] % (Auto) 5.0 Eos % (Auto) 0.1 Baso % (Auto) 0.3 Lymph # (Auto) 2.5 [place] # (Auto) 0.6 Eos # (Auto) 0.0 Baso # (Auto) 0.0 Abs Immat Gran (auto) 0.04 H Absolute Neuts (auto) 8.5 H Absolute Nucleated RBC 0.000 Nucleated RBC % (auto) 0.0 Anion Gap 22 H Estim Creat Clear Calc 102.1 Estimated GFR > 60 Random Glucose 101 Calcium 9.6 Magnesium 1.9 Total Bilirubin 1.3 H AST 159 H ALT 32 H Alkaline Phosphatase 136 H Total Protein 8.5 H Albumin 4.3 Lipase 42 Urine Color Yellow Urine Appearance Clear Urine pH 7.0 Ur Specific [place] <= 1.005 Urine Protein Negative Urine Glucose (UA) Negative Urine Ketones Negative Urine Blood Negative Urine Nitrite Negative Ur Leukocyte Esterase Trace H Urine RBC 0-2 Urine WBC 0-5 Ur Squamous Epith Cells 3-5 Urine Bacteria Trace Hyaline Casts 0-2 Urine Test NEGATIVE Ethyl Alcohol 117 Imaging Radiologist's Impressions: Impressions Abdomen/Pelvis CT 09/25/25 16:41 IMPRESSION: No abnormality to explain the patient's abdominal pain Hepatic steatosis with areas of geographic sparing. Nephrolithiasis, left kidney. There are likely three 1-2 mm stones. 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 Fleischner guidelines were followed. Electronically signed by: Ezio Centeno MD 09/25/2025 05:05 PM [facility] [place] Assessment and Plan (1) Alcohol withdrawal: Qualifiers: Complication of substance-induced condition: with unspecified complication Qualified Code(s): F10.939 - Alcohol use, unspecified with withdrawal, unspecified Status: Acute Plan 40yo with AUD presenting with over 6 months of nausea, vomiting, and abdominal pain; inability to keep down anything solid over the last 1 wk; muscle weakness; and possible hematemesis; found to have severe hypoK severe hypoK - admit to telemetry, recheck K, replete IV/PO as needed, continue to check Mg AUD with impending withdrawal - phenobarbital taper, thiamine, folate, multivitamins, Addiction Medicine consult EtOH hepatitis - recheck LFTs and check INR in AM; does not appear severe enough to require steroids hematemesis - suspect Milagros-Hughes tear vs EtOH gastritis; will give IV PPI and recheck H+H VTE ppx: SCDs, no heparin given possible hematemesis dispo: TBD code: full I anticipate that the patient will stay at least 2 midnights as an inpatient in the hospital due to the above reasons. It is neither reasonable nor safe to care for them in a less acute setting. Quality Stroke Does the patient have a stroke diagnosis?: No VTE Prior VTE?: No VTE Risk Level:: Medical - moderate - high VTE Device Contraindication: N/A - Device Ordered VTE Drug Contraindication: N/A - Med Ordered
[2025-09-25] MEDS: PHENobarbitaL sodium 130 MG/ML VIAL IM Q3Hx2 127 MG IM ×2 (18:36→21:42)
[2025-09-25] MEDS: Lactated Ringers 1,000 ML 80 ML IVCONT (18:43)
--- NOTE | 2025-09-25 19:16 | PHA.MEDREC ---
Pharmacy Consult ? Medication Reconciliation Pharmacy has completed the medication reconciliation. Spoke with pt to confirm medications.
[2025-09-25 19:17] LABS: Potassium 3.4 mmol/L (3.3-5.1)
[2025-09-25 19:49] VITALS: BP 106/75; PULSE 97; RESP 12; TEMP 37.1; O2SAT 97
--- NOTE | 2025-09-25 21:17 | HO.NURTONUR ---
Addendum entered by Coco Linares RN 09/26/25 09:29: pt labs this morning WBC normal, H&H drop from 12.7-10.2, 38.6-31.3. K has been replaced and has noramlized. Pt still having nausea, retching, and white foamy spit. Pt has been getting zofran with little relief. CIWA 11 at 0930 09/26 Dr. Medina aware of symptoms, awaiting bedside eval this AM. she has been ambulating to the bathroom with no concerns. Tolerating ice chips and cranberry juice at this time. Pt interested in information on NA meetings, as she has had periods of being sober and is wanting to get herself back into a good spot. Has been decreasing nips down to 3-4 a day for the last few days. Original Note: Pt here w/ mult c/o's of blood in stool x mos assoc w/ n&V. Pt admits to drinking 10 nips of vodka q/day. CT negative, pt currently being admitted and tx'd for etoh withdrawal and hypokalemia.
[2025-09-26 04:08] LABS: Hematocrit 31.3 % (37.0-47.0); Hemoglobin 10.2 g/dl (12.0-16.0); Mean Corpuscular HGB Conc 32.6 g/dl (31.0-35.0); Mean Corpuscular Hemoglobin 34.7 pg (27.0-33.0); Mean Corpuscular Volume 106.5 fL (80.0-98.0); NRBC Abs Auto 0.000 X10*3/uL (0.0-0.012); NRBC Pct Auto 0.0 /100WBC (0.0-0.2); Platelet Count 144 X10*3/uL (160-400); Red Blood Count 2.94 X10*6/uL (4.20-5.50); White Blood Count 7.7 X10*3/uL (4.8-10.8)
[2025-09-26 04:15] LABS: INTERNATIONAL NORM RATIO 1.2 (0.9-1.1); Prothrombin Time 14.2 SEC (11.2-13.5)
[2025-09-26 04:26] LABS: Alanine Aminotransferase 20 U/L (0-31); Albumin Level 3.2 g/dL (3.5-5.0); Alkaline Phosphatase 104 U/L (39-117); Anion Gap 13 (12-20); Aspartate Amino Transferase 111 U/L (5-31); Blood Urea Nitrogen 5 mg/dL (9-16); Calcium 8.3 mg/dL (8.4-10.2); Carbon Dioxide 28 mmol/L (22-29); Chloride 98 mmol/L (96-108); Creatinine Clr Calc Pharmacy 107.4; Estimated Glomerular Filt Rate > 60; Magnesium 2.2 mg/dL (1.6-2.6); Potassium 3.5 mmol/L (3.3-5.1); Sodium 135 mmol/L (135-145); Total Protein 6.3 g/dL (6.5-8.0)
[2025-09-26 06:35] VITALS: BP 91/58; PULSE 70; RESP 18; TEMP 37.1; O2SAT 94
[2025-09-26] MEDS: Lactated Ringers 1,000 ML 80 ML IVCONT ×2 (09:14→20:32)
[2025-09-26] MEDS: 0.9 % Sodium Chloride Flush 3 ML SYRINGE IVFLUSH ×2 (09:14→16:04)
--- NOTE | 2025-09-26 09:36 | PC.NURSE ---
Resumed care of pt this morning at 0700, at that time she was resting comfortably. Pt has been up and ambulated to the bathroom, this RN discussed morning medication with pt, at this time she is still having a lot of nausea, pt requesting to wait on morning medications, education given on the importance of her Phenobarb and to attempt to take it as soon as she can as it can also help with the nausea, Zofran not due at this time, pt tolerating ice chips and cranberry juice well, CIWA 11 d/t nausea/RYAN/slight tremors, MD aware. IVF running per order. Awaiting transport to bed assignment at this time.
[2025-09-26 10:16] VITALS: BP 117/66; PULSE 93; RESP 18; TEMP 37.1; O2SAT 97
[2025-09-26 10:21] VITALS: BMI 36.4
[2025-09-26 11:48] VITALS: BP 123/62; PULSE 82; RESP 18; TEMP 36.8; O2SAT 96
--- NOTE | 2025-09-26 12:51 | MHC.CM.PN ---
Pt. lives with her children, she does not use home health services, or DME. PCP is Garima Hickman MD at [facility]. Pt. is able to arrange a ride home at [place], DCP: home, self care. CM to follow for DC needs.
--- NOTE | 2025-09-26 15:44 | P.PNIM_ITS ---
Subjective Subjective Date of Service: 09/26/25 Interval History: No acute issues overnight. No seizures noted Review of Systems Denies chest pain Denies shortness of breath Denies nausea vomiting diarrhea Denies fever chills Physical Exam 2 Vital Signs: Vital Signs: Last Vital Signs Temp 98.2 F 09/26/25 11:48 Pulse 82 09/26/25 11:48 Resp 18 09/26/25 11:48 BP 123/62 09/26/25 11:48 Pulse Ox 96 09/26/25 11:48 O2 Del Method Room Air 09/26/25 11:48 BMI result Body Mass Index 36.4 Const: Other: Awake alert oriented x3 in no acute distress Resp: Other: Clear to auscultation bilaterally no rales rhonchi or wheezes Cardio: Other: No S4; positive S1-S2; no S3 murmurs rubs or gallops GI: Other: Soft nontender nondistended normoactive bowel sounds Extrem: Other: No edema bilaterally Objective Data Active Medications Acetaminophen (Acetaminophen 325 Mg Tablet) 650 mg PO Q6H PRN PRN Reason: Pain, Mild 1-3,fever,headache Calcium Carbonate (Calcium Carbonate 750 Mg Tab.Chew) 750 mg PO Q4H PRN PRN Reason: Heartburn Folic Acid (Folic Acid 1 Mg Tablet) 1 mg PO DAILY [facility] Last Admin: 09/26/25 11:31 Dose: 1 mg Documented By: ADILIA Lactated Ringer's (Lr) 1,000 mls @ 80 mls/hr IVCONT .[id number] [facility] Last Admin: 09/26/25 13:56 Dose: Not Given Documented By: ADILIA Non-Admin Reason: IV Running Magnesium Hydroxide (Milk Of Magnesia 30 Ml Oral.Susp) 30 ml PO DAILY PRN PRN Reason: Constipation Melatonin (Melatonin 3 Mg Tablet) 6 mg PO BEDTIME PRN PRN Reason: Insomnia Multivitamins/Vitamin C (Multivitamin Tablet) 1 tab PO DAILY [facility] Last Admin: 09/26/25 11:31 Dose: 1 tab Documented By: ADILIA Ondansetron HCl (Ondansetron Hcl 4 Mg/2 Ml Vial) 4 mg IVPUSH Q8H PRN PRN Reason: Nausea and Vomiting Last Admin: 09/26/25 10:55 Dose: 4 mg Documented By: ADILIA Pantoprazole Sodium (Pantoprazole Sodium 40 Mg/10 Ml Vial) 40 mg IVPUSH BID@0630,8220 [facility] Last Admin: 09/26/25 09:14 Dose: 40 mg Documented By: SAM Pharmacy Consult (Consult Rx Etoh Phenob Im/Po) 1 each MISCELLANE ONCE PRN; Protocol PRN Reason: Consult order Phenobarbital (Phenobarbital 30 Mg Tablet) 30 mg PO BID [facility] Stop: 09/27/25 21:01 Last Admin: 09/26/25 11:31 Dose: 30 mg Documented By: ADILIA Phenobarbital (Phenobarbital 15 Mg Tablet) 15 mg PO BID [facility] Stop: 09/29/25 21:01 Phenobarbital (Phenobarbital 15 Mg Tablet) 15 mg PO DAILY [facility] Stop: 10/01/25 09:01 Sodium Chloride (0.9 % Sodium Chloride Flush 3 Ml Syringe) 3 ml IVFLUSH QSHIFT [facility] Last Admin: 09/26/25 09:14 Dose: 3 ml Documented By: SAM Thiamine HCl (Thiamine Hcl 100 Mg Tablet) 100 mg PO DAILY [facility] Last Admin: 09/26/25 11:31 Dose: 100 mg Documented By: ADILIA Labs 09/26/25 04:02 09/26/25 04:02 Labs: Laboratory Results - last 24 hr 09/25/25 09/26/25 15:20 04:02 MCV 106.5 H MCH 34.7 H MCHC 32.6 RDW 15.0 Plt Count 144 L D MPV 8.8 L Absolute Nucleated RBC 0.000 Nucleated RBC % (auto) 0.0 PT 14.2 H INR 1.2 H Anion Gap 13 Estim Creat Clear Calc 107.4 Estimated GFR > 60 Random Glucose 93 Calcium 8.3 L D Magnesium 2.2 Total Bilirubin 1.4 H AST 111 H ALT 20 Alkaline Phosphatase 104 Total Protein 6.3 L Albumin 3.2 L Urine Color Yellow Urine Appearance Clear Urine pH 7.0 Ur Specific [place] <= 1.005 Urine Protein Negative Urine Glucose (UA) Negative Urine Ketones Negative Urine Blood Negative Urine Nitrite Negative Ur Leukocyte Esterase Trace H Urine RBC 0-2 Urine WBC 0-5 Ur Squamous Epith Cells 3-5 Urine Bacteria Trace Hyaline Casts 0-2 Urine Test NEGATIVE Assessment and Plan (1) Alcohol withdrawal: Status: Acute (2) Hypokalemia: Status: Acute Plan 40yo with AUD presenting with over 6 months of nausea, vomiting, and abdominal pain; inability to keep down anything solid over the last 1 wk; muscle weakness; and possible hematemesis; found to have severe hypoK 1.AUD with impending withdrawal -well controlled with phenobarb protocol -continue to observe on CIWA scale -willing to accept assistance with the addiction control 2. Hypokalemia -repleted with good results -follow renals/divalent 3.EtOH hepatitis -trending down with conservative therapies -follow clinically and chemically 4.Hematemesis - none since admission -hemoglobin stable -continue IV ppi. . . Switch to oral in a.m. if no acute issues VTE ppx: SCDs, no heparin given possible hematemesis dispo: TBD code: full I anticipate that the patient will stay at least 2 midnights as an inpatient in the hospital due to the above reasons. It is neither reasonable nor safe to care for them in a less acute setting. Quality Stroke Does the patient have a stroke diagnosis?: No VTE Prior VTE?: No VTE Risk Level:: Medical - moderate - high VTE Device Contraindication: N/A - Device Ordered VTE Drug Contraindication: N/A - Med Ordered
[2025-09-26 15:50] VITALS: BP 121/61; PULSE 89; RESP 18; TEMP 36.9; O2SAT 97
--- NOTE | 2025-09-26 16:11 | MHC.RECOVRN ---
Addiction Consult received for patient admitted for treatment and stabilization of (since February):? N/V/bloody stool hematuria, no BM x 2 weeks, no flatus in 1 week, increased abdominal pain, decreased magnesium, GI MD recommended ED. Recovery evaluation completed. Please see for additional details. Plan: Pt currently receiving Naltrexone from PCP at [facility] and would like to continue? this.? Pt planning on accessing AA and considering returning to therapy No ACS provider F/U needed. Pt declined any other interventions. ACS available PRN
[2025-09-26 20:00] VITALS: BP 115/55; PULSE 84; RESP 18; TEMP 36.6; O2SAT 98
[2025-09-27] VITALS (7 sets, daily range): BP systolic 92–112; BP diastolic 52–78; PULSE 84–100; RESP 16–18; TEMP 36.1–37.2; O2SAT 95–99
--- NOTE | 2025-09-27 01:18 | P.EN_ITS ---
Event Note Date of Service: 09/27/25 Event Note: According to the RN, the patient has developed new respiratory symptoms, including nasal congestion, sore throat, dry cough, left ear pain, and a sensation of swelling on the left side of the neck. The patient was evaluated at the bedside. During the assessment, they described a sore throat that has been worsening over time. They also reported experiencing a dry cough, nasal congestion, discomfort in the left ear, and swelling. VS: BP 92/57, 84 bpm, 97.9, rr 18, o2 96% RA Exam * No erythema observed. * Left anterior cervical lymph node. * Tenderness present upon palpation of the outer ear, especially in the area anterior and posterior to the ear. Plan Suspect viral rhinosinusitis - Oxymetazoline nasal spray - Guaifenesin - Respiratory panel to rule out other resp - LR 500 cc bolus - Supportive care - Continue holding NSAID due to presenting symptoms of hematemesis Time Spent With Patient Time: Total time managing care of this patient today ____ minutes.
[2025-09-27] MEDS: Lactated Ringers 500 ML IVCONT (02:03)
--- NOTE | 2025-09-27 06:03 | PC.NURSE ---
at 0036 contacted Cailin Stephen in regards to patient with cold like symptoms, stuffy nose, sore throat, dry cough, left ear pain and pt report of swelling to left neck below ear. Patient was requesting cough medicine, ibuprophen and nasal congestant. She later refused to decongestant and Robitussin when offered. Swab sent to lab for respiratory panel. 500mL bolus LR as ordered. Patient soon fell asleep, sleeping in naps for the rest of the night.
[2025-09-27 06:46] LABS: MANUAL DIFF FLAG NO
[2025-09-27 06:57] LABS: Hematocrit 27.7 % (37.0-47.0); Hemoglobin 8.9 g/dl (12.0-16.0); Imm Gran Abs Auto 0.03 X10*3/uL (0.00-0.03); Imm Gran Pct Auto 0.4 % (0.0-0.4); Lymphocytes Absolute Auto 1.6 X10*3/uL (1.2-4.9); Mean Corpuscular HGB Conc 32.1 g/dl (31.0-35.0); Mean Corpuscular Hemoglobin 34.4 pg (27.0-33.0); Mean Corpuscular Volume 106.9 fL (80.0-98.0); NRBC Abs Auto 0.000 X10*3/uL (0.0-0.012); NRBC Pct Auto 0.0 /100WBC (0.0-0.2); Platelet Count 147 X10*3/uL (160-400); Red Blood Count 2.59 X10*6/uL (4.20-5.50); White Blood Count 7.7 X10*3/uL (4.8-10.8)
[2025-09-27 07:07] LABS: Alanine Aminotransferase 20 U/L (0-31); Albumin Level 3.0 g/dL (3.5-5.0); Alkaline Phosphatase 108 U/L (39-117); Anion Gap 13 (12-20); Aspartate Amino Transferase 115 U/L (5-31); Blood Urea Nitrogen 3 mg/dL (9-16); Calcium 8.2 mg/dL (8.4-10.2); Carbon Dioxide 27 mmol/L (22-29); Chloride 100 mmol/L (96-108); Creatinine Clr Calc Pharmacy 108.2; Estimated Glomerular Filt Rate > 60; Magnesium 1.9 mg/dL (1.6-2.6); Potassium 3.5 mmol/L (3.3-5.1); Sodium 136 mmol/L (135-145); Total Protein 6.0 g/dL (6.5-8.0)
[2025-09-27 09:35] LABS: Chlamydia pneumoniae PCR Not Detected (Not Detect.); Coronavirus 229E PCR Not Detected (Not Detect.); Coronavirus HKU1 PCR Not Detected (Not Detect.); Coronavirus NL63 PCR Not Detected (Not Detect.); Coronavirus OC43 PCR Not Detected (Not Detect.); RSV PCR Not Detected (Not Detect.); Rhino/Enterovirus PCR Not Detected (Not Detect.)
[2025-09-27 09:54] LABS: Influenza A H1 PCR Not Detected (Not Detect.); Influenza A H1-2009 PCR Not Detected (Not Detect.); Influenza A H3 PCR Not Detected (Not Detect.); SARS-CoV-2 PCR Not Detected (Not Detect.)
--- NOTE | 2025-09-27 10:01 | P.CNGI_ITS ---
History of Present Illness Data of Consult Service Date: 09/27/25 Requesting physician: Jamal Medina Primary Care Provider: Garima Hickman MD HPI Reason for consult: Anemia with hx hematemsis 40 YF who drinks approximately 10 nips of vodka has had persistent nausea, vomiting, and epigastric pain since February. Pt admitted on 09/25/25 since she was unable to keep anything solid down for the past 2 weeks and thinks she threw up a little bit of blood this AM. Pt complains of constant upper abdominal pain which radiates acrossand to the back. Pain is worse with eating and patient has been unable to tolerate solid food for the past 2 weeks. Patient complains of nausea, retching and vomiting (vomits white foam). Patient denies having any bowel movement for the past 2 weeks - tried MiraLax without any results Today she passed a few small tiffany and denies black stools or rectal beeding. She denied taking aspirin or ibuprofen. No BM x 1 wk. She was noted to be intoxicated with BAL 117 and severely hypokalemic with K 2.4. She endorses generalized muscle weakness. She was given IV pantoprazole, 40 mEq of IV KCl, and 40 mEq of PO KCl. She was started on phenobarbital taper. No history of EtOH withdrawal seizures. Patient denies majors pulmonary or cardiac problems, history of snoring or sleep apnea. Pt states she lives in the [facility] and takes care of her kids, dogs and horses. Pt admits to smoking 1/2 PPD of cigarettes for the past 13 years. She drinks 3-5 ozs of vodka daily for the past 8-9 months and is trying to cut back. She has started attending AA meetings and plans to remain sober after she is discharged. PAST ABD SURGERIES: Pt is status post sections, appendectomy and tubal ligation FAMILY HX: Both parents were alcoholics. history of colon polyps in a brother, dad with pancreatic cancer and an uncle had stomach cancer Review of Systems 2 Review of Systems: Yes all other systems are reviewed and are negative PMFSH Past Medical History Medical History Alcoholic Social History Social History Household Members: Children Housing: House Do you presently have visiting nurse or other home services: No Alcohol intake: current Alcohol intake frequency: 3 or more drinks per day Alcohol type: hard liquor Patient Tobacco Use Status: Current everyday Tobacco user Tobacco use type: Cigarette service: No Meds Allergies Allergy/AdvReac Type Severity Reaction Status Date / Time Barbiturates Allergy Hypotension Verified 09/25/25 12:06 latex Allergy Hives Verified 09/25/25 12:06 morphine Allergy Hypotension Verified 09/25/25 12:06 Penicillins Allergy Unknown Verified 09/25/25 12:06 hydromorphone AdvReac Hypotension Verified 09/25/25 12:06 Active Medications: Current Medications Acetaminophen (Acetaminophen 325 Mg Tablet) 650 mg PO Q6H PRN PRN Reason: Pain, Mild 1-3,fever,headache Calcium Carbonate (Calcium Carbonate 750 Mg Tab.Chew) 750 mg PO Q4H PRN PRN Reason: Heartburn Folic Acid (Folic Acid 1 Mg Tablet) 1 mg PO DAILY [facility] Last Admin: 09/27/25 09:03 Dose: 1 mg Guaifenesin (Guaifenesin 200 Mg/10 Ml 10 Ml Liquid) 10 ml PO Q4H PRN PRN Reason: Cough Lactated Ringer's (Lr) 1,000 mls @ 80 mls/hr IVCONT .[id number] [facility] Last Admin: 09/26/25 20:32 Dose: 80 mls/hr Magnesium Hydroxide (Milk Of Magnesia 30 Ml Oral.Susp) 30 ml PO DAILY PRN PRN Reason: Constipation Melatonin (Melatonin 3 Mg Tablet) 6 mg PO BEDTIME PRN PRN Reason: Insomnia Multivitamins/Vitamin C (Multivitamin Tablet) 1 tab PO DAILY [facility] Last Admin: 09/27/25 09:02 Dose: 1 tab Ondansetron HCl (Ondansetron Hcl 4 Mg/2 Ml Vial) 4 mg IVPUSH Q8H PRN PRN Reason: Nausea and Vomiting Last Admin: 09/27/25 06:44 Dose: 4 mg Oxymetazoline HCl (Oxymetazoline Hcl 0.05 % Nasal 15 Ml [place]) 2 spray NOSTRIL- B BID PRN PRN Reason: Nasal Congestion Stop: 09/30/25 01:27 Pantoprazole Sodium (Pantoprazole Sodium 40 Mg/10 Ml Vial) 40 mg IVPUSH BID@0630,1630 [facility] Last Admin: 09/27/25 06:44 Dose: 40 mg Pharmacy Consult (Consult Rx Etoh Phenob Im/Po) 1 each MISCELLANE ONCE PRN; Protocol PRN Reason: Consult order Phenobarbital (Phenobarbital 30 Mg Tablet) 30 mg PO BID [facility] Stop: 09/27/25 21:01 Last Admin: 09/27/25 09:02 Dose: 30 mg Phenobarbital (Phenobarbital 15 Mg Tablet) 15 mg PO BID [facility] Stop: 09/29/25 21:01 Phenobarbital (Phenobarbital 15 Mg Tablet) 15 mg PO DAILY [facility] Stop: 10/01/25 09:01 Sodium Chloride (0.9 % Sodium Chloride Flush 3 Ml Syringe) 3 ml IVFLUSH QSHIFT [facility] Last Admin: 09/27/25 09:05 Dose: Not Given Thiamine HCl (Thiamine Hcl 100 Mg Tablet) 100 mg PO DAILY [facility] Last Admin: 09/27/25 09:04 Dose: 100 mg Home Medications ?Medication ?Instructions ?Recorded ?Confirmed ?Last Taken ?Type albuterol sulfate 90 mcg/actuation 2 puff inhalation Q 4H PRN 09/25/25 09/25/25 09/25/25 History aerosol inhaler Shortness Of Breath Or Wheez ing ondansetron 4 mg disintegrating 4 mg PO DAILY PRN Naus ea And 09/25/25 09/25/25 Unknown History tablet Vomiting potassium chloride 20 mEq 20 meq PO BID 09/25/2509/25 Unknown History tablet,extended release Physical Exam 2 Vital Signs: Vital Signs: Last Vital Signs Temp 98.1 F 09/27/25 07:45 Pulse 91 09/27/25 07:45 Resp 18 09/27/25 07:45 BP 101/64 09/27/25 07:45 Pulse Ox 99 09/27/25 07:45 O2 Del Method Room Air 09/27/25 07:45 BMI result Body Mass Index 36.4 Const: General: no acute distress Nutritional Appearance: obese O rientation/consciousness: patient oriented x3 Limitations: no limitations HEENT: Head: Yes normal to inspection Ears: hearing grossly normal bilaterally Eyes: Sclerae: sclerae normal Pupils: Equal, round and reactive pupils present Neck: Neck: Yes normal visual inspection Chest: Chest palpation & inspection: normal inspection of the chest Resp: Effort & Inspection: normal respiratory effort Auscultation: clear to auscultation bilaterally Cardio: Palpation: normal PMI Rate: regular rate Rhythm: regular rhythm Heart sounds: S1 normal heart sound present, S2 normal heart sound present and no murmurs GI: Palpation (GI): Soft to palpation, Tenderness to palpation present (GI) (moderate upper abdominal tenderness) and No hepatosplenomegaly present A uscultation: normal bowel sounds Rectal Exam - Female: deferred Skin: General skin exam: no rashes or lesions noted Neuro: General: patient oriented x3, gait normal and moves all extremities Cranial nerves: Yes Equal, round and reactive pupils present Psych: Appearance: grossly normal Mental Status: mental status grossly normal Results Labs 09/27/25 06:33 09/27/25 06:33 Labs: Short CBC 09/27/25 Range/Units 06:33 WBC 7.7 (4.8-10.8) X10*3/uL Hgb 8.9 L (12.0-16.0) g/dl Hct 27.7 L (37.0-47.0) % Plt Count 147 L (160-400) X10*3/uL BMP 09/27/25 06:33 Sodium 136 Potassium 3.5 Chloride 100 Carbon Dioxide 27 BUN 3 L Creatinine 0.60 Calcium 8.2 L Liver Function 09/27/25 Range/Units 06:33 Total Bilirubin 0.8 (0.0-1.0) mg/dL AST 115 H (5-31) U/L ALT 20 (0-31) U/L Alkaline Phosphatase 108 (39-117) U/L Albumin 3.0 L (3.5-5.0) g/dL Assessment and Plan (1) Hematemesis: Status: Acute (2) Nausea and vomiting: Status: Acute (3) Upper abdominal pain: Status: Acute Plan 40 YF who drinks approximately 10 nips of vodka admitted with persistent nausea, vomiting, and epigastric pain since February. Pt admitted on 09/25/25 since she was unable to keep anything solid down for the past 2 weeks and thinks she threw up a little bit of blood this AM. Patient denies major pulmonary or cardiac problems, history of snoring or sleep apnea. Pt admits to smoking 1/2 PPD of cigarettes for the past 13 years. She drinks 3-5 ozs of vodka daily for the past 8-9 months and is trying to cut back. Upper abd pain, nausea and vomiting likely due to erosive esophagitis, peptic ulcer disease or gastritis. Hematemesis likely due to Milagros-Hughes tear or peptic ulcer disease Elevated LFTs likely due to ETOH abuse RECOMMENDATIONS: 1. Agree with IV pain medications, PPI and antiemetics 2. Dulcolax 2 tabs today for constipation 3. Further evaluation with EGD - scheduled 09/28/25. EGD procedure and potential complications were reviewed with the patient. 4. Needs ETOH rehab to stop drinkling 5. Check hepatitis serologies - added to am labs Procedures Date of Service Date of Service: 09/27/25
[2025-09-27] MEDS: Milk of Magnesia 30 ML ORAL.SUSP PO (10:47)
--- NOTE | 2025-09-27 11:54 | MHC.RECOVRN ---
T/W met attempted to meet with pt. in 460-1 to F/U on information/resources/education provided yesterday. Pt not feeling well medically and did not have a chance to review info. Was resting and not feeling up to meeting. Will F/U when pt. feeling better.
[2025-09-27] MEDS: Lactated Ringers 1,000 ML 80 ML IVCONT (12:28)
--- NOTE | 2025-09-27 14:03 | P.PNIM_ITS ---
Subjective Subjective Date of Service: 09/27/25 Interval History: Events overnight noted. Hemoglobin drifting downward without repeat vomiting Review of Systems Denies chest pain Denies shortness of breath Denies nausea vomiting diarrhea Denies fever chills Physical Exam 2 Vital Signs: Vital Signs: Last Vital Signs Temp 98.9 F 09/27/25 11:38 Pulse 86 09/27/25 11:38 Resp 18 09/27/25 11:38 BP 108/67 09/27/25 11:38 Pulse Ox 96 09/27/25 11:38 O2 Del Method Room Air 09/27/25 11:38 BMI result Body Mass Index 36.4 Const: Other: Awake alert oriented x3 in no acute distress Resp: Other: Clear to auscultation bilaterally no rales rhonchi or wheezes Cardio: Other: No S4; positive S1-S2; no S3 murmurs rubs or gallops GI: Other: Soft nontender nondistended normoactive bowel sounds Extrem: Other: No edema bilaterally Objective Data Active Medications Acetaminophen (Acetaminophen 325 Mg Tablet) 650 mg PO Q6H PRN PRN Reason: Pain, Mild 1-3,fever,headache Calcium Carbonate (Calcium Carbonate 750 Mg Tab.Chew) 750 mg PO Q4H PRN PRN Reason: Heartburn Folic Acid (Folic Acid 1 Mg Tablet) 1 mg PO DAILY [facility] [place] Last Admin: 09/27/25 09:03 Dose: 1 mg Documented By: JENNIFER Guaifenesin (Guaifenesin 200 Mg/10 Ml 10 Ml Liquid) 10 ml PO Q4H PRN PRN Reason: Cough Magnesium Hydroxide (Milk Of Magnesia 30 Ml Oral.Susp) 30 ml PO DAILY PRN PRN Reason: Constipation Last Admin: 09/27/25 10:47 Dose: 30 ml Documented By: JENNIFER Melatonin (Melatonin 3 Mg Tablet) 6 mg PO BEDTIME PRN PRN Reason: Insomnia Multivitamins/Vitamin C (Multivitamin Tablet) 1 tab PO DAILY [facility] Last Admin: 09/27/25 09:02 Dose: 1 tab Documented By: JENNIFER Ondansetron HCl (Ondansetron Hcl 4 Mg/2 Ml Vial) 4 mg IVPUSH Q8H PRN PRN Reason: Nausea and Vomiting Last Admin: 09/27/25 06:44 Dose: 4 mg Documented By: STEFANO Oxymetazoline HCl (Oxymetazoline Hcl 0.05 % Nasal 15 Ml [place]) 2 spray NOSTRIL- B BID PRN PRN Reason: Nasal Congestion Stop: 09/30/25 01:27 Pantoprazole Sodium (Pantoprazole Sodium 40 Mg/10 Ml Vial) 40 mg IVPUSH BID@0630,1630 [facility] [place] Last Admin: 09/27/25 06:44 Dose: 40 mg Documented By: STEFANO Pharmacy Consult (Consult Rx Etoh Phenob Im/Po) 1 each MISCELLANE ONCE PRN; Protocol PRN Reason: Consult order Phenobarbital (Phenobarbital 30 Mg Tablet) 30 mg PO BID [facility] Stop: 09/27/25 21:01 Last Admin: 09/27/25 09:02 Dose: 30 mg Documented By: JENNIFER Phenobarbital (Phenobarbital 15 Mg Tablet) 15 mg PO BID [facility] Stop: 09/29/25 21:01 Phenobarbital (Phenobarbital 15 Mg Tablet) 15 mg PO DAILY [facility] Stop: 10/01/25 09:01 Sodium Chloride (0.9 % Sodium Chloride Flush 3 Ml Syringe) 3 ml IVFLUSH QSHIFT [facility] [place] Last Admin: 09/27/25 09:05 Dose: Not Given Documented By: JENNIFER Non-Admin Reason: IV Running Thiamine HCl (Thiamine Hcl 100 Mg Tablet) 100 mg PO DAILY [facility] Last Admin: 09/27/25 09:04 Dose: 100 mg Documented By: JENNIFER Labs 09/27/25 06:33 09/27/25 06:33 Labs: Laboratory Results - last 24 hr 09/27/25 09/27/25 02:00 06:33 MCV 106.9 H MCH 34.4 H MCHC 32.1 RDW 14.4 Plt Count 147 L MPV 9.3 L Immature Gran % (Auto) 0.4 Neut % (Auto) 71.1 Lymph % (Auto) 21.3 [place] % (Auto) 6.1 Eos % (Auto) 0.7 Baso % (Auto) 0.4 Lymph # (Auto) 1.6 [place] # (Auto) 0.5 Eos # (Auto) 0.1 Baso # (Auto) 0.0 Abs Immat Gran (auto) 0.03 Absolute Neuts (auto) 5.5 Absolute Nucleated RBC 0.000 Nucleated RBC % (auto) 0.0 Anion Gap 13 Estim Creat Clear Calc 108.2 Estimated GFR > 60 Fasting Glucose 106 H Calcium 8.2 L Magnesium 1.9 Total Bilirubin 0.8 AST 115 H ALT 20 Alkaline Phosphatase 108 Total Protein 6.0 L Albumin 3.0 L Respiratory Panel Mathew See Note Adenovirus (Rapid PCR) Not Detected B.pert (TEM-PCR) Not Detected B.parapertussis DNA PCR Not Detected C. pneumoniae DNA (PCR) Not Detected Coronavirus OC43 (PCR) Not Detected Coronavirus HKU1 (PCR) Not Detected Coronavirus 229E (PCR) Not Detected Coronavirus NL63 (PCR) Not Detected Human Metapneumovir PCR Not Detected Influenza A (RT-PCR) Not Detected Influenza A (H1) PCR Not Detected Influ A (H1/09) PCR Not Detected Influenza A (H3) PCR Not Detected Influenza B (RT-PCR) Not Detected M. pneumoniae (PCR) Not Detected Parainfluenza 1 (PCR) Not Detected Parainfluenza 2 (PCR) Not Detected Parainfluenza 3 (PCR) Not Detected Parainfluenza 4 (PCR) Not Detected RSV (PCR) Not Detected Entero/Rhino (PCR) Not Detected SARS-CoV-2 RNA (RT-PCR) Not Detected Assessment and Plan (1) Alcohol withdrawal: Status: Acute (2) Hematemesis: Status: Acute Plan 40yo with AUD presenting with over 6 months of nausea, vomiting, and abdominal pain; inability to keep down anything solid over the last 1 wk; muscle weakness; and possible hematemesis; found to have severe hypoK 1.AUD -well controlled with phenobarb protocol.. No seizures -continue to observe on CIWA scale -willing to accept assistance with the addiction control 2. Hypokalemia -repleted with good results -follow renals/divalent 3.EtOH hepatitis -trending down with conservative therapies -follow clinically and chemically 4.Hematemesis -hemoglobin trending downward in the absence of further bleeding -continue IV ppi -EGD in a.m. VTE ppx: SCDs, no heparin given possible hematemesis dispo: TBD code: full Patient requires ongoing hospitalization to trend hemoglobin and for EGD by Gastroenterology in a.m. Quality Stroke Does the patient have a stroke diagnosis?: No VTE Prior VTE?: No VTE Risk Level:: Medical - moderate - high VTE Device Contraindication: N/A - Device Ordered VTE Drug Contraindication: N/A - Med Ordered
--- NOTE | 2025-09-27 14:45 | PC.NURSE ---
Pt alert and oriented. C/O abdominal pain. States, It feels like tiny papercuts in my intestines. She has had multiple small bowel movements after milk of magnesia and dulcolax, but has been straining on the toilet. Reports that the straining has been painful. Reports numbness to feet and toes, which is not a new symptom. Headache this morning resolved with Tylenol.
[2025-09-27] MEDS: 0.9 % Sodium Chloride Flush 3 ML SYRINGE IVFLUSH ×2 (15:05→20:03)
[2025-09-27] MEDS: guaiFENesin 200 MG/10 ML 10 ML LIQUID PO (23:11)
[2025-09-28] VITALS (9 sets, daily range): BP systolic 86–124; BP diastolic 40–71; PULSE 73–82; RESP 16–18; TEMP 36.6–37.4; O2SAT 96–100
[2025-09-28] MEDS: guaiFENesin 200 MG/10 ML 10 ML LIQUID PO ×4 (03:17→21:37)
[2025-09-28 07:12] LABS: Hematocrit 29.1 % (37.0-47.0); Hemoglobin 9.1 g/dl (12.0-16.0); Mean Corpuscular HGB Conc 31.3 g/dl (31.0-35.0); Mean Corpuscular Hemoglobin 34.2 pg (27.0-33.0); Mean Corpuscular Volume 109.4 fL (80.0-98.0); NRBC Abs Auto 0.000 X10*3/uL (0.0-0.012); NRBC Pct Auto 0.0 /100WBC (0.0-0.2); Platelet Count 163 X10*3/uL (160-400); Red Blood Count 2.66 X10*6/uL (4.20-5.50); White Blood Count 8.8 X10*3/uL (4.8-10.8)
[2025-09-28 07:47] LABS: Alanine Aminotransferase 19 U/L (0-31); Albumin Level 3.3 g/dL (3.5-5.0); Alkaline Phosphatase 106 U/L (39-117); Anion Gap 13 (12-20); Aspartate Amino Transferase 86 U/L (5-31); Blood Urea Nitrogen < 3 mg/dL (9-16); Calcium 8.4 mg/dL (8.4-10.2); Carbon Dioxide 25 mmol/L (22-29); Chloride 103 mmol/L (96-108); Creatinine Clr Calc Pharmacy 113.9; Estimated Glomerular Filt Rate > 60; Potassium 3.6 mmol/L (3.3-5.1); Sodium 137 mmol/L (135-145); Total Protein 6.4 g/dL (6.5-8.0)
[2025-09-28 08:01] LABS: HBS Num1 12.86 mIU/mL (0-7.99); HBc Num1 0.20 S/CO (0.00-0.79); HBsAGNum1 0.46 S/CO (0.00-0.99); Hepatitis B Surface Antigen Negative (Negative); ~HepC Num1 0.12 S/CO (0.00-0.79); ~Hepatitis B Surface Antibody REACTIVE (Nonreactive); ~Hepatitis C Antibody Nonreactive (Nonreactive)
--- NOTE | 2025-09-28 08:18 | P.CONAN_ITS ---
Documented by User: Nighat Eddy NP 09/28/25 08:19 HPI - Anesthesia Eval Consult details Narrative: 40 yr old female for EGD ETOH use disorder Severe hypokalemia: K+ 3.6 today PMFSH Active Problems Active Problems: All Active Problems Nausea and vomiting (Acute) Upper abdominal pain (Acute) Hematemesis (Acute) Alcohol withdrawal (Acute) Hypokalemia (Acute) Gastritis (Acute) Animal bite (Acute) Past Medical History Medical History Alcoholic Social History Social History Household Members: Children Housing: House Do you presently have visiting nurse or other home services: No Alcohol intake: current Alcohol intake frequency: 3 or more drinks per day Alcohol type: hard liquor Patient Tobacco Use Status: Current everyday Tobacco user Tobacco use type: Cigarette service: No Meds Allergies Allergy/AdvReac Type Severity Reaction Status Date / Time Barbiturates Allergy Hypotension Verified 09/25/25 12:06 latex Allergy Hives Verified 09/25/25 12:06 morphine Allergy Hypotension Verified 09/25/25 12:06 Penicillins Allergy Unknown Verified 09/25/25 12:06 hydromorphone AdvReac Hypotension Verified 09/25/25 12:06 Active Medications: Current Medications Acetaminophen (Acetaminophen 325 Mg Tablet) 650 mg PO Q6H PRN PRN Reason: Pain, Mild 1-3,fever,headache Last Admin: 09/28/25 05:46 Dose: 650 mg Calcium Carbonate (Calcium Carbonate 750 Mg Tab.Chew) 750 mg PO Q4H PRN PRN Reason: Heartburn Folic Acid (Folic Acid 1 Mg Tablet) 1 mg PO DAILY [facility] Last Admin: 09/27/25 09:03 Dose: 1 mg Guaifenesin (Guaifenesin 200 Mg/10 Ml 10 Ml Liquid) 10 ml PO Q4H PRN PRN Reason: Cough Last Admin: 09/28/25 03:17 Dose: 10 ml Magnesium Hydroxide (Milk Of Magnesia 30 Ml Oral.Susp) 30 ml PO DAILY PRN PRN Reason: Constipation Last Admin: 09/27/25 10:47 Dose: 30 ml Melatonin (Melatonin 3 Mg Tablet) 6 mg PO BEDTIME PRN PRN Reason: Insomnia Last Admin: 09/27/25 23:11 Dose: 6 mg Multivitamins/Vitamin C (Multivitamin Tablet) 1 tab PO DAILY [facility] Last Admin: 09/27/25 09:02 Dose: 1 tab Ondansetron HCl (Ondansetron Hcl 4 Mg/2 Ml Vial) 4 mg IVPUSH Q8H PRN PRN Reason: Nausea and Vomiting Last Admin: 09/27/25 23:11 Dose: 4 mg Oxymetazoline HCl (Oxymetazoline Hcl 0.05 % Nasal 15 Ml [place]) 2 spray NOSTRIL- B BID PRN PRN Reason: Nasal Congestion Stop: 09/30/25 01:27 Pantoprazole Sodium (Pantoprazole Sodium 40 Mg/10 Ml Vial) 40 mg IVPUSH BID@0630,1630 [facility] Last Admin: 09/28/25 05:36 Dose: 40 mg Pharmacy Consult (Consult Rx Etoh Phenob Im/Po) 1 each MISCELLANE ONCE PRN; Protocol PRN Reason: Consult order Phenobarbital (Phenobarbital 15 Mg Tablet) 15 mg PO BID [facility] Stop: 09/29/25 21:01 Phenobarbital (Phenobarbital 15 Mg Tablet) 15 mg PO DAILY [facility] Stop: 10/01/25 09:01 Sodium Chloride (0.9 % Sodium Chloride Flush 3 Ml Syringe) 3 ml IVFLUSH QSHIFT [facility] Last Admin: 09/27/25 20:03 Dose: 3 ml Thiamine HCl (Thiamine Hcl 100 Mg Tablet) 100 mg PO DAILY [facility] Last Admin: 09/27/25 09:04 Dose: 100 mg Home Medications ?Medication ?Instructions ?Recorded ?Confirmed ?Last Taken ?Type albuterol sulfate 90 mcg/actuation 2 puff inhalation Q 4H PRN 09/25/25 09/25/25 09/25/25 History aerosol inhaler Shortness Of Breath Or Wheez ing ondansetron 4 mg disintegrating 4 mg PO DAILY PRN Naus ea And 09/25/25 09/25/25 Unknown History tablet Vomiting potassium chloride 20 mEq 20 meq PO BID 09/25/2509/25 Unknown History tablet,extended release Exam Height,Weight and Vital Signs: Height 4 ft 10 in Weight 79 kg Last Vital Signs Temp 97.9 F 09/28/25 07:10 Pulse 81 09/28/25 07:10 Resp 18 09/28/25 07:10 BP 105/52 L 09/28/25 07:10 Pulse Ox 96 09/28/25 07:10 O2 Del Method Room Air 09/28/25 07:10 Pertinent Lab Results Pertinent Lab Results: Laboratory Tests 09/25/25 09/25/25 09/25/25 12:15 15:20 18:54 WBC 11.7 H RBC 3.62 L Hgb 12.7 Hct 38.6 MCV 106.6 H MCH 35.1 H MCHC 32.9 RDW 14.9 Plt Count 217 MPV 9.2 L Immature Gran % (Auto) 0.3 Neut % (Auto) 72.6 Lymph % (Auto) 21.7 [place] % (Auto) 5.0 Eos % (Auto) 0.1 Baso % (Auto) 0.3 Lymph # (Auto) 2.5 [place] # (Auto) 0.6 Eos # (Auto) 0.0 Baso # (Auto) 0.0 Abs Immat Gran (auto) 0.04 H Absolute Neuts (auto) 8.5 H Absolute Nucleated RBC 0.000 Nucleated RBC % (auto) 0.0 PT INR Sodium 135 Potassium 2.4 L* D 3.4 D Chloride 89 L Carbon Dioxide 26 Anion Gap 22 H BUN 4 L Creatinine 0.61 Estim Creat Clear Calc 102.1 Estimated GFR > 60 Random Glucose 101 Fasting Glucose Calcium 9.6 Magnesium 1.9 Total Bilirubin 1.3 H AST 159 H ALT 32 H Alkaline Phosphatase 136 H Total Protein 8.5 H Albumin 4.3 Lipase 42 Urine Color Yellow Urine Appearance Clear Urine pH 7.0 Ur Specific [place] <= 1.005 Urine Protein Negative Urine Glucose (UA) Negative Urine Ketones Negative Urine Blood Negative Urine Nitrite Negative Ur Leukocyte Esterase Trace H Urine RBC 0-2 Urine WBC 0-5 Ur Squamous Epith Cells 3-5 Urine Bacteria Trace Hyaline Casts 0-2 Urine Test NEGATIVE Ethyl Alcohol 117 Respiratory Panel Mathew Adenovirus (Rapid PCR) B.pert (TEM-PCR) B.parapertussis DNA PCR C. pneumoniae DNA (PCR) Coronavirus OC43 (PCR) Coronavirus HKU1 (PCR) Coronavirus 229E (PCR) Coronavirus NL63 (PCR) Human Metapneumovir PCR Influenza A (RT-PCR) Influenza A (H1) PCR Influ A (H1/09) PCR Influenza A (H3) PCR Influenza B (RT-PCR) M. pneumoniae (PCR) Parainfluenza 1 (PCR) Parainfluenza 2 (PCR) Parainfluenza 3 (PCR) Parainfluenza 4 (PCR) RSV (PCR) Entero/Rhino (PCR) SARS-CoV-2 RNA (RT-PCR) 09/26/25 09/27/25 09/27/25 04:02 02:00 06:33 WBC 7.7 7.7 RBC 2.94 L 2.59 L Hgb 10.2 L 8.9 L Hct 31.3 L 27.7 L MCV 106.5 H 106.9 H MCH 34.7 H 34.4 H MCHC 32.6 32.1 RDW 15.0 14.4 Plt Count 144 L D 147 L MPV 8.8 L 9.3 L Immature Gran % (Auto) 0.4 Neut % (Auto) 71.1 Lymph % (Auto) 21.3 [place] % (Auto) 6.1 Eos % (Auto) 0.7 Baso % (Auto) 0.4 Lymph # (Auto) 1.6 [place] # (Auto) 0.5 Eos # (Auto) 0.1 Baso # (Auto) 0.0 Abs Immat Gran (auto) 0.03 Absolute Neuts (auto) 5.5 Absolute Nucleated RBC 0.000 0.000 Nucleated RBC % (auto) 0.0 0.0 PT 14.2 H INR 1.2 H Sodium 135 136 Potassium 3.5 3.5 Chloride 98 100 Carbon Dioxide 28 27 Anion Gap 13 13 BUN 5 L 3 L Creatinine 0.58 0.60 Estim Creat Clear Calc 107.4 108.2 Estimated GFR > 60 > 60 Random Glucose 93 Fasting Glucose 106 H Calcium 8.3 L D 8.2 L Magnesium 2.2 1.9 Total Bilirubin 1.4 H 0.8 AST 111 H 115 H ALT 20 20 Alkaline Phosphatase 104 108 Total Protein 6.3 L 6.0 L Albumin 3.2 L 3.0 L Lipase Urine Color Urine Appearance Urine pH Ur Specific [place] Urine Protein Urine Glucose (UA) Urine Ketones Urine Blood Urine Nitrite Ur Leukocyte Esterase Urine RBC Urine WBC Ur Squamous Epith Cells Urine Bacteria Hyaline Casts Urine Test Ethyl Alcohol Respiratory Panel Mathew See Note Adenovirus (Rapid PCR) Not Detected B.pert (TEM-PCR) Not Detected B.parapertussis DNA PCR Not Detected C. pneumoniae DNA (PCR) Not Detected Coronavirus OC43 (PCR) Not Detected Coronavirus HKU1 (PCR) Not Detected Coronavirus 229E (PCR) Not Detected Coronavirus NL63 (PCR) Not Detected Human Metapneumovir PCR Not Detected Influenza A (RT-PCR) Not Detected Influenza A (H1) PCR Not Detected Influ A (H1/09) PCR Not Detected Influenza A (H3) PCR Not Detected Influenza B (RT-PCR) Not Detected M. pneumoniae (PCR) Not Detected Parainfluenza 1 (PCR) Not Detected Parainfluenza 2 (PCR) Not Detected Parainfluenza 3 (PCR) Not Detected Parainfluenza 4 (PCR) Not Detected RSV (PCR) Not Detected Entero/Rhino (PCR) Not Detected SARS-CoV-2 RNA (RT-PCR) Not Detected 09/28/25 06:27 WBC 8.8 RBC 2.66 L Hgb 9.1 L Hct 29.1 L MCV 109.4 H MCH 34.2 H MCHC 31.3 RDW 14.6 Plt Count 163 MPV 9.3 L Immature Gran % (Auto) Neut % (Auto) Lymph % (Auto) [place] % (Auto) Eos % (Auto) Baso % (Auto) Lymph # (Auto) [place] # (Auto) Eos # (Auto) Baso # (Auto) Abs Immat Gran (auto) Absolute Neuts (auto) Absolute Nucleated RBC 0.000 Nucleated RBC % (auto) 0.0 PT INR Sodium 137 Potassium 3.6 Chloride 103 Carbon Dioxide 25 Anion Gap 13 BUN < 3 L Creatinine 0.57 Estim Creat Clear Calc 113.9 Estimated GFR > 60 Random Glucose Fasting Glucose 95 Calcium 8.4 Magnesium Total Bilirubin 0.9 AST 86 H ALT 19 Alkaline Phosphatase 106 Total Protein 6.4 L Albumin 3.3 L Lipase Urine Color Urine Appearance Urine pH Ur Specific [place] Urine Protein Urine Glucose (UA) Urine Ketones Urine Blood Urine Nitrite Ur Leukocyte Esterase Urine RBC Urine WBC Ur Squamous Epith Cells Urine Bacteria Hyaline Casts Urine Test Ethyl Alcohol Respiratory Panel Mathew Adenovirus (Rapid PCR) B.pert (TEM-PCR) B.parapertussis DNA PCR C. pneumoniae DNA (PCR) Coronavirus OC43 (PCR) Coronavirus HKU1 (PCR) Coronavirus 229E (PCR) Coronavirus NL63 (PCR) Human Metapneumovir PCR Influenza A (RT-PCR) Influenza A (H1) PCR Influ A (H1/09) PCR Influenza A (H3) PCR Influenza B (RT-PCR) M. pneumoniae (PCR) Parainfluenza 1 (PCR) Parainfluenza 2 (PCR) Parainfluenza 3 (PCR) Parainfluenza 4 (PCR) RSV (PCR) Entero/Rhino (PCR) SARS-CoV-2 RNA (RT-PCR) Narrative Narrative: EKG 09/25/25 Vent. Rate : 105 BPM Atrial Rate : 105 BPM P-R Int : 120 ms QRS Dur : 84 ms QT Int : 380 ms P-R-T Axes : 71 16 12 degrees QTcB Int : 502 ms Sinus tachycardia Possible Left atrial enlargement T wave abnormality, consider inferior ischemia Abnormal ECG When compared with ECG of 13-Apr-2024 21:24, T wave inversion now evident in Inferior leads Nonspecific T wave abnormality now evident in Lateral leads QT has lengthened Documented by User: Clarissa Ruano MD 09/28/25 17:37 [facility] Past Medical History Medical History Alcoholic Family History Family history of problems with anesthesia: No Surgical History History of Problems with Anesthesia: No Social History Social History Household Members: Children Housing: House Do you presently have visiting nurse or other home services: No Alcohol intake: current Alcohol intake frequency: 3 or more drinks per day Alcohol type: hard liquor Patient Tobacco Use Status: Current everyday Tobacco user Tobacco use type: Cigarette service: No Meds Allergies Allergy/AdvReac Type Severity Reaction Status Date / Time Barbiturates Allergy Hypotension Verified 09/25/25 12:06 latex Allergy Hives Verified 09/25/25 12:06 morphine Allergy Hypotension Verified 09/25/25 12:06 Penicillins Allergy Unknown Verified 09/25/25 12:06 hydromorphone AdvReac Hypotension Verified 09/25/25 12:06 Home Medications ?Medication ?Instructions ?Recorded ?Confirmed ?Last Taken ?Type albuterol sulfate 90 mcg/actuation 2 puff inhalation Q 4H PRN 09/25/25 09/25/25 09/25/25 History aerosol inhaler Shortness Of Breath Or Wheez ing ondansetron 4 mg disintegrating 4 mg PO DAILY PRN Naus ea And 09/25/25 09/25/25 Unknown History tablet Vomiting potassium chloride 20 mEq 20 meq PO BID 09/25/2509/25 Unknown History tablet,extended release Exam Airway Mallampati Class: II ( ouple cracked/broken teeth laterally) TM Dist: >3cm Neck ROM: Full Heart: rrr Lungs: cta Assessment and Plan Assessment Anesthesia Assessment: Anesthesia Plan Discussed and Chart Reviewed Final Anesthetic Review Family History of Problems with Anesthesia: No History of Problems with Anesthesia: No NPO: Yes ASA Class: II Final Preanesthetic Review: No Changes in Pt Med Stat, Meds/Allgs Chart Reviewed and Consent Obtained/Reviewed Patient Risk: Low Procedure Risk: Intermediate Anesthetic Plan Anesthetic Plan: MAC: Disposition: Standard PACU
[2025-09-28] MEDS: PHENobarbital 15 MG TABLET PO ×2 (09:10→20:20)
[2025-09-28] MEDS: 0.9 % Sodium Chloride Flush 3 ML SYRINGE IVFLUSH ×2 (09:15→16:45)
[2025-09-28] MEDS: Lactated Ringers 1,000 ML 125 ML IVCONT ×2 (10:54→20:21)
--- NOTE | 2025-09-28 11:14 | MHC.CM.PN ---
Per ROUNDS, Patient is not yet medically cleared for dc (IV Protonix, trending Hemoglobin, EGD).
--- NOTE | 2025-09-28 15:40 | P.EN_ITS ---
Event Note Date of Service: 09/28/25 Event Note: Addiction consult placed for patient with AUD Chart reviewed--withdrawal being managed with phenobarbital CIWA scores low 2 Seen by party plan sales consultant over the weekend and today Patient declining [facility], however open to [facility] referral Referral placed by party plan sales consultant See notes for additional details Time Spent With Patient Time: Total time managing care of this patient today ____ minutes.
--- NOTE | 2025-09-28 16:17 | P.PNIM_ITS ---
Subjective Subjective Date of Service: 09/28/25 Interval History: No further hematemesis. No overt withdrawal signs Review of Systems Denies chest pain Denies shortness of breath Denies nausea vomiting diarrhea Denies fever chills Physical Exam 2 Vital Signs: Vital Signs: Last Vital Signs Temp 98.9 F 09/28/25 15:22 Pulse 80 09/28/25 15:22 Resp 16 09/28/25 15:22 BP 107/56 L 09/28/25 15:22 Pulse Ox 97 09/28/25 15:22 O2 Del Method Room Air 09/28/25 15:22 BMI result Body Mass Index 36.4 Const: Other: Awake alert oriented x3 in no acute distress Resp: Other: Clear to auscultation bilaterally no rales rhonchi or wheezes Cardio: Other: No S4; positive S1-S2; no S3 murmurs rubs or gallops GI: Other: Soft nontender nondistended normoactive bowel sounds Extrem: Other: No edema bilaterally Objective Data Active Medications Acetaminophen (Acetaminophen 325 Mg Tablet) 650 mg PO Q6H PRN PRN Reason: Pain, Mild 1-3,fever,headache Last Admin: 09/28/25 05:46 Dose: 650 mg Documented By: ELICEO Calcium Carbonate (Calcium Carbonate 750 Mg Tab.Chew) 750 mg PO Q4H PRN PRN Reason: Heartburn Folic Acid (Folic Acid 1 Mg Tablet) 1 mg PO DAILY [facility] Last Admin: 09/28/25 09:10 Dose: 1 mg Documented By: ADILIA Guaifenesin (Guaifenesin 200 Mg/10 Ml 10 Ml Liquid) 10 ml PO Q4H PRN PRN Reason: Cough Last Admin: 09/28/25 14:08 Dose: 10 ml Documented By: ADILIA Lactated Ringer's (Lr) 1,000 mls @ 125 mls/hr IVCONT .Q8H [facility] Last Admin: 09/28/25 10:54 Dose: 125 mls/hr Documented By: ADILIA Magnesium Hydroxide (Milk Of Magnesia 30 Ml Oral.Susp) 30 ml PO DAILY PRN PRN Reason: Constipation Last Admin: 09/27/25 10:47 Dose: 30 ml Documented By: JENNIFER Melatonin (Melatonin 3 Mg Tablet) 6 mg PO BEDTIME PRN PRN Reason: Insomnia Last Admin: 09/27/25 23:11 Dose: 6 mg Documented By: ELICEO Multivitamins/Vitamin C (Multivitamin Tablet) 1 tab PO DAILY [facility] Last Admin: 09/28/25 09:14 Dose: 1 tab Documented By: ADILIA Ondansetron HCl (Ondansetron Hcl 4 Mg/2 Ml Vial) 4 mg IVPUSH Q8H PRN PRN Reason: Nausea and Vomiting Last Admin: 09/28/25 09:06 Dose: 4 mg Documented By: ADILIA Oxymetazoline HCl (Oxymetazoline Hcl 0.05 % Nasal 15 Ml [place]) 2 spray NOSTRIL- B BID PRN PRN Reason: Nasal Congestion Stop: 09/30/25 01:27 Pantoprazole Sodium (Pantoprazole Sodium 40 Mg/10 Ml Vial) 40 mg IVPUSH BID@0630,1630 [facility] Last Admin: 09/28/25 05:36 Dose: 40 mg Documented By: ELICEO Pharmacy Consult (Consult Rx Etoh Phenob Im/Po) 1 each MISCELLANE ONCE PRN; Protocol PRN Reason: Consult order Phenobarbital (Phenobarbital 15 Mg Tablet) 15 mg PO BID [facility] Stop: 09/29/25 21:01 Last Admin: 09/28/25 09:10 Dose: 15 mg Documented By: ADILIA Phenobarbital (Phenobarbital 15 Mg Tablet) 15 mg PO DAILY [facility] Stop: 10/01/25 09:01 Sodium Chloride (0.9 % Sodium Chloride Flush 3 Ml Syringe) 3 ml IVFLUSH QSHIFT [facility] Last Admin: 09/28/25 09:15 Dose: 3 ml Documented By: ADILIA Thiamine HCl (Thiamine Hcl 100 Mg Tablet) 100 mg PO DAILY [facility] Last Admin: 09/28/25 09:10 Dose: 100 mg Documented By: ADILIA Labs 09/28/25 06:27 09/28/25 06:27 Labs: Laboratory Results - last 24 hr 09/28/25 06:27 MCV 109.4 H MCH 34.2 H MCHC 31.3 RDW 14.6 Plt Count 163 MPV 9.3 L Absolute Nucleated RBC 0.000 Nucleated RBC % (auto) 0.0 Anion Gap 13 Estim Creat Clear Calc 113.9 Estimated GFR > 60 Fasting Glucose 95 Calcium 8.4 Total Bilirubin 0.9 AST 86 H ALT 19 Alkaline Phosphatase 106 Total Protein 6.4 L Albumin 3.3 L Hep Bs Antigen Negative Hep Bs Antibody REACTIVE Hep B Core Total Ab Nonreactive Hepatitis C Ab (EIA) Nonreactive Assessment and Plan (1) Hematemesis: Status: Acute (2) Alcohol withdrawal: Status: Acute Plan 40yo with AUD presenting with over 6 months of nausea, vomiting, and abdominal pain; inability to keep down anything solid over the last 1 wk; muscle weakness; and possible hematemesis; found to have severe hypoK 1.Hematemesis -hemoglobin stable -continue IV ppi -EGD today.. Further plans based on forthcoming data 2.AUD -well controlled with phenobarb protocol.. No seizures -continue to observe on CIWA scale -willing to accept assistance with the addiction control 3. Hypokalemia -repleted with good results -follow renals/divalent 4.EtOH hepatitis -normalized -follow clinically and chemically VTE ppx: SCDs, no heparin given possible hematemesis dispo: TBD code: full Patient requires ongoing hospitalization to trend hemoglobin and for EGD by Gastroenterology in a.[facility] Stroke Does the patient have a stroke diagnosis?: No VTE Prior VTE?: No VTE Risk Level:: Medical - moderate - high VTE Device Contraindication: N/A - Device Ordered VTE Drug Contraindication: N/A - Med Ordered
--- NOTE | 2025-09-28 16:21 | PM.DS ---
DS: Providers Provider Date of admission: 09/25/25 17:44 Date of discharge: 09/29/25 Primary care physician: Garima Hickman MD Consults: 09/25/25 18:10 Addiction Medicine Provider Routine Consulting Provider: Addiction Covering Reason for consultation: etoh 09/27/25 09:12 Consult to Gastroenterology Routine Consulting Provider: [facility] [place] [facility] Reason for consultation: anemia with hx hematemsis Has provider been notified: No DS: Diagnosis Discharge Diagnosis (1) Hematemesis: Status: Acute (2) Alcohol withdrawal: Status: Acute DS: Summary Hospital Course Hospital Course: 40yo M with no diagnosed chronic medical problems but who drinks approximately 10 nips of vodka has had persistent nausea, vomiting, and epigastric pain since February. She has been unable to keep anything solid down for the past 1 week and thinks she threw up a little bit of blood this AM. Doesn't take aspirin or ibuprofen. No BM x 1 wk. She was noted to be intoxicated with BAL 117 and severely hypokalemic with K 2.4. She endorses generalized muscle weakness. She was given IV pantoprazole, 40 mEq of IV KCl, and 40 mEq of PO KCl. She was started on phenobarbital taper. No history of EtOH withdrawal seizures. Hospital Course Patient admitted to telemetry where monitor failed to demonstrate any acute dysrhythmias. Maintained on phenobarb protocol without issue. Patient had no further hematemesis since admission however hemoglobin did trend downward. Seen by GI and underwent upper endoscopy on 09/28/2025 showing Gastritis with a few superficial antral erosions, is recommended to take oral PPI. Her initial potassium of 2.4 is corrected to normal. final diagnoses: alcohol withdrawal hypokalemia Gastritis Time Attestation Discharge Coordination Time (in mins): 35 Quality: Safe Use of Opioids Does Pt have an Active Cancer Diagnosis on the Problem List?: No Quality: Stroke Does the patient have a stroke diagnosis?: No Physical Exam Vital Signs: Vital Signs: Last Vital Signs Temp 98.9 F 09/28/25 15:22 Pulse 80 09/28/25 15:22 Resp 16 09/28/25 15:22 BP 107/56 L 09/28/25 15:22 Pulse Ox 97 09/28/25 15:22 O2 Del Method Room Air 09/28/25 15:22 BMI result Body Mass Index 36.4 Const: Other: Awake alert oriented x3 in no acute distress Resp: Other: Clear to auscultation bilaterally no rales rhonchi or wheezes Cardio: Other: No S4; positive S1-S2; no S3 murmurs rubs or gallops GI: Other: Soft nontender nondistended normoactive bowel sounds Extrem: Other: No edema bilaterally DS: Data Data Completed and Pending Labs on day of discharge: Laboratory Results - last 24 hr 09/28/25 06:27 WBC 8.8 RBC 2.66 L Hgb 9.1 L Hct 29.1 L MCV 109.4 H MCH 34.2 H MCHC 31.3 RDW 14.6 Plt Count 163 MPV 9.3 L Absolute Nucleated RBC 0.000 Nucleated RBC % (auto) 0.0 Sodium 137 Potassium 3.6 Chloride 103 Carbon Dioxide 25 Anion Gap 13 BUN < 3 L Creatinine 0.57 Estim Creat Clear Calc 113.9 Estimated GFR > 60 Fasting Glucose 95 Calcium 8.4 Total Bilirubin 0.9 AST 86 H ALT 19 Alkaline Phosphatase 106 Total Protein 6.4 L Albumin 3.3 L Hep Bs Antigen Negative Hep Bs Antibody REACTIVE Hep B Core Total Ab Nonreactive Hepatitis C Ab (EIA) Nonreactive Discharge Plan Discharge Anticipated Discharge Date/Time: 09/29/25 12:40 Patient Disposition: Home, Self-Care Discharge Diagnosis: Alcohol withdrawal Referrals: Garima Hickman MD [Primary Care Provider, [facility]] - 1 Week Discharge Medications: New omeprazole 20 mg Capsule,Delayed Release(Dr/Ec) 20 mg PO DAILY@0630 Qty: 90 0RF Continued ondansetron 4 mg tablet,disintegrating 4 mg PO DAILY PRN (Reason: Nausea And Vomiting) potassium chloride 20 mEq tablet extended release 20 meq PO BID albuterol sulfate 90 mcg/actuation Hfa Aerosol Inhaler 2 puff INHALATION Q4H PRN (Reason: Shortness Of Breath Or Wheezing) Discharge Orders: Discharge Order (Routine); Ordered 09/29/25 Ordered By: Noe Morales Diet: Advance to usual diet Activity on Discharge: As tolerated Stand Alone Forms: Patient Portal Discharge page Print Language: Yakut Care Plan Goals: recovery from alcohol withdrawqal and gastitis, nausean and vomiting, low potassium Health Concerns: alcohol withdrawqal and gastitis, nausean and vomiting, low potassiuj Plan of Treatment: avoid alcohol follow through resuources given to you to help stays sober take Pirolosec for gastritis Assessment: see above Discharge Date/Time: 09/29/25 16:00
--- NOTE | 2025-09-28 17:27 | MHC.SHP ---
Pre-Procedural Eval Section A - 24 Hr Update-Section A only Date of Service: 09/28/25 The patient is an INPATIENT: Yes Changes since office visit: Yes New Medical Problems, Yes Changes in Medication and Yes Patient answered all questions; No Cold of Flu in the past 2 weeks The patient has been examined within 24 hours of the surgical procedure. The History & Physical has been completed within 30 days and I have reviewed it.: Yes Section B - Complete if H&P > 30 days Chief Complaint: ETOH WD Allergies: Allergies Allergy/AdvReac Type Severity Reaction Status Date / Time Barbiturates Allergy Hypotension Verified 09/25/25 12:06 latex Allergy Hives Verified 09/25/25 12:06 morphine Allergy Hypotension Verified 09/25/25 12:06 Penicillins Allergy Unknown Verified 09/25/25 12:06 hydromorphone AdvReac Hypotension Verified 09/25/25 12:06 Plan Diagnosis/Plan: Unchanged I have reviewed the history and physical and performed a pertinent physical examination on my patient. No changes have occurred unless specified. Time Spent With Patient Time: Total time managing care of this patient today ____ minutes.
--- NOTE | 2025-09-28 18:41 | P.OP_ITS ---
Operative Note Operative Note Date of Service: 09/28/25 Narrative: FLEXIBLE TRANSORAL UPPER GASTROINTESTINAL ENDOSCOPY WITH BIOPSIES Pre-op diagnosis: Nausea and vomiting, minor hematemesis Post-op diagnosis: Gastritis, Endoscopist:? Swati Knight MD Anesthesia:?MAC UPPER ENDOSCOPY Consent: Indications for the procedure and potential complications of bleeding, perforation, reaction to medications and missed diagnosis were discussed with the patient and informed consent was obtained. Instrument: Olympus GIF H 190 mid size upper endoscope Monitoring: Vital signs and clinical assessment, continuous EKG monitoring, Pulse oximetry, Carbon Dioxide monitoring and blood pressure monitoring were done throughout the procedure. Procedure: The patient was placed in the left lateral decubitis position and pre-procedure medications were administered and a bite block was placed. The endoscope was inserted into the mouth and advanced under direct vision to the third part of duodenum. A careful inspection was made as the upper endoscope was withdrawn including a retroflexed examination of the proximal stomach; Findings and interventions are described below. Findings: Larynx: Normal Esophagus: GE junction at 35 cms. No esophagitis or Reese's. Stomach: Moderate diffuse gastric erythema with a few superficial erosions in the antrum Biopsies were obtained from the gastric body and antrum. Grade 2 flap valve on retroflexed examination of the cardia. Duodenum: Normal bulb and descending duodenum Intervention: Biopsies as noted above Impression and Post Procedure Diagnosis: Endoscopy Findings: ESOPHAGUS: Normal STOMACH: Gastritis with a few superficial antral erosions DUODENUM: Normal Hematemesis likely from MW tear which has healed. Plan: Regular diet tonight. Ok to discharge home on PO PPI if pt tolerates PO diet Above findings were reviewed with the patient. Patient will be scheduled for a follow-up appointment in the GI clinic - follow- up of anemia and elevated LFTs. BIOPSIES SHOWED: A. Gastric antrum, biopsy: Gastric antral mucosa with reactive changes and focal mild active gastritis; negative for H. pylori, intestinal metaplasia and dysplasia. B. Gastric body, biopsy: Gastric body mucosa with minimal chronic inactive gastritis; negative for H. pylori, intestinal metaplasia and dysplasia
[2025-09-28] MEDS: Milk of Magnesia 30 ML ORAL.SUSP PO (23:17)
[2025-09-29 02:58] VITALS: BP 105/57; PULSE 91; RESP 18; TEMP 37.4; O2SAT 99
[2025-09-29] MEDS: guaiFENesin 200 MG/10 ML 10 ML LIQUID PO (03:40)
--- NOTE | 2025-09-29 04:38 | PC.NURSE ---
Pt underwent EGD on 09/28/2025. OR team reported prior IV infiltration; new IV was placed after the procedure. [place] arrival [place] [facility] c/o pain at new IV site while receiving LR. Pt is planned for discharge on 09/29/2025 and declined placement of another IV for administration of one IV medication (pantoprazole). Dr. Sunshine notified and approved skipping AM IV pantoprazole dose. Will pass it onto day team.
--- NOTE | 2025-09-29 05:45 | PC.NURSE ---
Patient reports pain in her right forearm at the site of a previous IV line. The patient stated that the area became red and tender to touch. The OR nurse reported to this RN that the IV line was discontinued due to infiltration. Dr. Sunshine made aware. Ice packs applied, pt refused pain medication.
[2025-09-29 06:54] LABS: MANUAL DIFF FLAG NO
[2025-09-29 06:57] LABS: Hematocrit 30.1 % (37.0-47.0); Hemoglobin 9.5 g/dl (12.0-16.0); Imm Gran Abs Auto 0.03 X10*3/uL (0.00-0.03); Imm Gran Pct Auto 0.4 % (0.0-0.4); Lymphocytes Absolute Auto 1.7 X10*3/uL (1.2-4.9); Mean Corpuscular HGB Conc 31.6 g/dl (31.0-35.0); Mean Corpuscular Hemoglobin 34.4 pg (27.0-33.0); Mean Corpuscular Volume 109.1 fL (80.0-98.0); NRBC Abs Auto 0.020 X10*3/uL (0.0-0.012); NRBC Pct Auto 0.2 /100WBC (0.0-0.2); Platelet Count 182 X10*3/uL (160-400); Red Blood Count 2.76 X10*6/uL (4.20-5.50); White Blood Count 8.1 X10*3/uL (4.8-10.8)
[2025-09-29 07:29] VITALS: BP 98/62; PULSE 88; RESP 20; TEMP 36.7; O2SAT 99
[2025-09-29] MEDS: PHENobarbital 15 MG TABLET PO (07:50)
[2025-09-29 11:55] VITALS: BP 119/64; PULSE 82; RESP 20; TEMP 37; O2SAT 99
--- NOTE | 2025-09-29 12:38 | PM.DS ---
DS: Providers Provider Date of admission: 09/25/25 17:44 Date of discharge: 09/29/25 Primary care physician: Garima Hickman MD Consults: 09/25/25 18:10 Addiction Medicine Provider Routine Consulting Provider: Addiction Covering Reason for consultation: etoh 09/27/25 09:12 Consult to Gastroenterology Routine Consulting Provider: [facility] [place] [facility] Reason for consultation: anemia with hx hematemsis Has provider been notified: No DS: Diagnosis Discharge Diagnosis (1) Hematemesis: Status: Acute (2) Alcohol withdrawal: Status: Acute DS: Summary Hospital Course Hospital Course: 40yo M with no diagnosed chronic medical problems but who drinks approximately 10 nips of vodka has had persistent nausea, vomiting, and epigastric pain since February. She has been unable to keep anything solid down for the past 1 week and thinks she threw up a little bit of blood this AM. Doesn't take aspirin or ibuprofen. No BM x 1 wk. She was noted to be intoxicated with BAL 117 and severely hypokalemic with K 2.4. She endorses generalized muscle weakness. She was given IV pantoprazole, 40 mEq of IV KCl, and 40 mEq of PO KCl. She was started on phenobarbital taper. No history of EtOH withdrawal seizures. Hospital Course Patient admitted to telemetry where monitor failed to demonstrate any acute dysrhythmias. Maintained on phenobarb protocol without issue. Patient had no further hematemesis since admission however hemoglobin did trend downward. Seen by GI and underwent upper endoscopy on 09/28/2025 showing Gastritis with a few superficial antral erosions, is recommended to take oral PPI. Her initial potassium of 2.4 is corrected to normal. final diagnoses: alcohol withdrawal hypokalemia Gastritis Time Attestation Discharge Coordination Time (in mins): 40 Quality: Safe Use of Opioids Does Pt have an Active Cancer Diagnosis on the Problem List?: No Quality: Stroke Does the patient have a stroke diagnosis?: No Physical Exam Vital Signs: Vital Signs: Last Vital Signs Temp 98.6 F 09/29/25 11:55 Pulse 82 09/29/25 11:55 Resp 20 09/29/25 11:55 BP 119/64 09/29/25 11:55 Pulse Ox 99 09/29/25 11:55 O2 Del Method Room Air 09/29/25 07:29 BMI result Body Mass Index 36.4 DS: Data Data Completed and Pending Pending studies at discharge: Pending at discharge 09/28/25 19:01 Surgical [PTH] Routine Labs on day of discharge: Laboratory Results - last 24 hr 09/29/25 06:01 WBC 8.1 RBC 2.76 L Hgb 9.5 L Hct 30.1 L MCV 109.1 H MCH 34.4 H MCHC 31.6 RDW 14.6 Plt Count 182 MPV 9.6 Immature Gran % (Auto) 0.4 Neut % (Auto) 70.7 Lymph % (Auto) 20.7 [place] % (Auto) 7.3 Eos % (Auto) 0.5 Baso % (Auto) 0.4 Lymph # (Auto) 1.7 [place] # (Auto) 0.6 Eos # (Auto) 0.0 Baso # (Auto) 0.0 Abs Immat Gran (auto) 0.03 Absolute Neuts (auto) 5.7 Absolute Nucleated RBC 0.020 H Nucleated RBC % (auto) 0.2 Discharge Plan Discharge Anticipated Discharge Date/Time: 09/29/25 12:40 Patient Disposition: Home, Self-Care Discharge Diagnosis: Alcohol withdrawal Referrals: Garima Hickman MD [Primary Care Provider, [facility]] - 1 Week Discharge Medications: New omeprazole 20 mg Capsule,Delayed Release(Dr/Ec) 20 mg PO DAILY@0630 Qty: 90 0RF Continued ondansetron 4 mg tablet,disintegrating 4 mg PO DAILY PRN (Reason: Nausea And Vomiting) potassium chloride 20 mEq tablet extended release 20 meq PO BID albuterol sulfate 90 mcg/actuation Hfa Aerosol Inhaler 2 puff INHALATION Q4H PRN (Reason: Shortness Of Breath Or Wheezing) Discharge Orders: Discharge Order (Routine); Ordered 09/29/25 Ordered By: Noe Morales Diet: Advance to usual diet Activity on Discharge: As tolerated Stand Alone Forms: Patient Portal Discharge page Print Language: Greenlandic Care Plan Goals: recovery from alcohol withdrawqal and gastitis, nausean and vomiting, low potassium Health Concerns: alcohol withdrawqal and gastitis, nausean and vomiting, low potassiuj Plan of Treatment: avoid alcohol follow through resuources given to you to help stays sober take Pirolosec for gastritis Assessment: see above
--- NOTE | 2025-09-29 12:48 | MHC.CM.PN ---
Per [facility], Patient is medically cleared for dc to home today, self care.
== END 2025-09-29 16:00 | disposition home or self-care (01) | DRG 241 ==
LOC: HO.ED 16:25 → HO.EDOVER 17:58 → HO.IMC 09-26 08:09
PROVIDERS: Emergency Medicine; Family Medicine; Hospitalist; Internal Medicine Gastroenterology; Physician Assistant Medical; Admitting Provider Family Medicine; Emergency Provider Emergency Medicine Emergency Medical Services; PCP Family Medicine; Visit Provider Internal Medicine
PROC: 0DJ08ZZ Inspection of Upper Intestinal Tract, Via Natural or Artificial Opening Endoscopic (ICD-10-PCS; CPT 43235; principal; 2025-09-28 16:40)
DX: K29.71 Gastritis, unspecified, with bleeding (principal); K70.10 Alcoholic hepatitis without ascites; B97.89 Other viral agents as the cause of diseases classified elsewhere; F10.939 Alcohol use, unspecified with withdrawal, unspecified; F10.929 Alcohol use, unspecified with intoxication, unspecified; F17.210 Nicotine dependence, cigarettes, uncomplicated; E87.6 Hypokalemia; J32.8 Other chronic sinusitis; Z20.822 Contact with and (suspected) exposure to COVID-19; Y90.5 Blood alcohol level of 100-119 mg/100 ml; Z71.6 Tobacco abuse counseling; Z79.899 Other long term (current) drug therapy
CPT/HCPCS: 36415; 71045; 74177; 80053; 80307; 81001; 81025; 83690; 83735; 84132; 85025; 85027; 85610; 86704; 86706; 86803; 87340; 87633; 88305; 88342; 93005; 99285; J2003; J2405; J2470; J2560; J2704; J3010; J3411; J3475; J3480; J7120; Q9967; S9485

== ENCOUNTER → 2025-09-25 13:20 | Outpatient (BNV) | payer MEDICAID, SELFPAY | PROVIDERS: Admitting Provider Family Medicine; Emergency Provider Emergency Medicine Emergency Medical Services; PCP Family Medicine; Visit Provider Internal Medicine Cardiovascular Disease | DX: R00.0 Tachycardia, unspecified (principal) | CPT/HCPCS: 93010 ==

== ENCOUNTER → 2025-09-25 13:40 | Outpatient (BNV) | payer MEDICAID, SELFPAY | PROVIDERS: Admitting Provider Family Medicine; Emergency Provider Emergency Medicine Emergency Medical Services; PCP Family Medicine; Visit Provider Radiology Diagnostic Radiology | DX: R10.9 Unspecified abdominal pain (principal); R19.7 Diarrhea, unspecified; E87.6 Hypokalemia | CPT/HCPCS: 74177 ==

== ENCOUNTER 2025-09-25 17:44 | Outpatient (BNV) | payer MEDICAID, SELFPAY | END 2025-09-28 11:12 | PROVIDERS: Admitting Provider Family Medicine; Emergency Provider Emergency Medicine Emergency Medical Services; PCP Family Medicine; Visit Provider Radiology Diagnostic Radiology | DX: R05.9 Cough, unspecified (principal) | CPT/HCPCS: 71045 ==

== ENCOUNTER → 2025-09-25 17:44 | Outpatient (BNV) | payer MEDICAID, SELFPAY | PROVIDERS: Admitting Provider Family Medicine; Emergency Provider Emergency Medicine Emergency Medical Services; PCP Family Medicine; Visit Provider Family Medicine | DX: F10.939 Alcohol use, unspecified with withdrawal, unspecified (principal) | CPT/HCPCS: 99223 ==

== ENCOUNTER → 2025-09-25 17:44 | Outpatient (BNV) | payer MEDICAID, SELFPAY | PROVIDERS: Admitting Provider Family Medicine; Emergency Provider Emergency Medicine Emergency Medical Services; PCP Family Medicine; Visit Provider Internal Medicine Gastroenterology | DX: K92.0 Hematemesis (principal); R10.10 Upper abdominal pain, unspecified | CPT/HCPCS: 99222 ==